=== PATIENT | male | born 1975 | race Caucasian/White ===

== ENCOUNTER → 2020-04-24 | Outpatient (CLI) | payer MEDICAID | END | disposition home or self-care (01) | LOC: LABWHC1 12:21 | PROVIDERS: ATTEND Pediatrics Pediatric Infectious Diseases | DX: Z03.818 Encounter for observation for suspected exposure to other biological agents ruled out (principal) | CPT/HCPCS: U0003; C9803 ==

== ENCOUNTER 2024-03-16 18:10 | Emergency (ER) | payer MEDICAID ==
[2024-03-16] MEDS ORDERED: ACETAMINOPHEN TAB 325 MG TAB ONE (19:38)
[2024-03-16] MEDS ORDERED: traMADol 50 MG TAB ONE (19:39)
[2024-03-16] MEDS ORDERED: IBUPROFEN 600 MG STARTER PACK 4 TAB BTL ONE (22:56)
[2024-03-16] MEDS ORDERED: traMADol 50 MG STARTER PACK 3 TAB BTL ONE (22:57)
--- NOTE | 2024-04-19 11:56 | XR ---
Patient Antonino Love ID [id number] Order # EXAMINATION TYPE: XR Hip Complete RT DATE OF EXAM: 03/17/2024 COMPARISON: No comparison on downtime PACS HISTORY: Pain, fall from horse TECHNIQUE: 2 view right hip supplemented with an AP pelvis FINDINGS: Femoral heads articulate with the acetabulum. Joint spaces are preserved. Symphysis pubis a nd sacroiliac joints are normal. No acute fracture or dislocation is evident. Follow up exams can be performed as clinically indicated IMPRESSION: 1. No acute fracture right hip. Follow up can be performed as clinically indicated
--- NOTE | 2024-04-19 11:57 | XR ---
Patient Antonino Love ID [id number] Order # EXAMINATION TYPE: XR lumbosacral spine min 4V DATE OF EXAM: 03/17/2024 COMPARISON: No comparison downtime PACS HISTORY: Pain, fall from horse TECHNIQUE: 5 view lumbar spine FINDINGS: 5 lumbar type vertebral bodies. Pedicles are intact. Facets appear normal. There is mild na rrowing of the L5-S1 disc height. Remaining disc heights are preserved. Vertebral body heights are pr eserved. No spondylolytic defects are evident. IMPRESSION: 1. No acute osseous abnormality lumbar spine 2. Mild degenerative disc changes L5-S1.
--- NOTE | 2024-04-19 11:57 | XR ---
Site ID [facility] Antonino Gerber ID [id number] Order # Procedure CHEST 2V EXAMINATION TYPE: XR chest 2V DATE OF EXAM: 03/17/2024 9:16 AM CLINICAL INDICATION: Pain COMPARISON: THIS EXAM WAS READ DURING PACS DOWNTIME, NO PRIORS AVAILABLE. TECHNIQUE: XR chest 2V Frontal view of the chest. FINDINGS: Lungs/Pleura: There is no evidence of pleural effusion, focal consolidation, or pneumothorax. Pulmonary vascularity: Unremarkable. Heart/mediastinum: Cardiomediastinal silhouette is unremarkable. Musculoskeletal: No acute osseous pathology. IMPRESSION: No acute cardiopulmonary disease/process.
== END 2024-03-16 23:08 | disposition home or self-care (01) ==
LOC: EC 18:10
CPT/HCPCS: 71046; 72110; 73502; 99283

== ENCOUNTER → 2024-05-04 | Outpatient (CLI) | payer MEDICAID ==
[2024-05-04 11:42] LABS: Partial Thromboplastin Time 25.2 sec (22.0-30.0); Prothrombin Time 11.2 sec (10.0-12.5)
[2024-05-04 16:41] LABS: Basophils # (A) 0.05 X 10*3/uL (0.00-0.10); Basophils % (A) 0.6 %; Eosinophils # (A) 0.32 X 10*3/uL (0.04-0.35); Eosinophils % (A) 3.8 %; HCT 47.9 % (39.6-50.0); HGB 16.4 g/dL (13.0-17.0); MCH 30.8 pg (27.0-32.0); MCHC 34.2 g/dL (32.0-37.0); MCV 89.9 FL (80.0-97.0); Mean Platelet Volume 12.7 FL (9.5-12.2); Monocytes # (A) 0.56 X 10*3/uL (0.20-1.00); Monocytes % (A) 6.6 %; NRBC Per 100 WBC 0 X 10*3/uL (0.00-0.01); Neutrophils # (A) 5.25 X 10*3/uL (1.80-7.70); Neutrophils % (A) 61.6 %; Platelet Count 239 X 10*3/uL (140-440); RBC 5.33 X 10*6/uL (4.40-5.60); RDW 12.5 % (11.5-14.5); WBC 8.51 X 10*3/uL (4.50-10.00)
[2024-05-04 16:55] LABS: ALT 32 U/L (10-49); AST 26 U/L (14-35); Albumin/Globulin Ratio 1.72 Ratio (1.60-3.17); Alkaline Phosphatase 98 U/L (41-126); Blood Urea Nitrogen 16.7 mg/dL (9.0-27.0); Calcium 9.9 mg/dL (8.7-10.3); Chloride 104 mmol/L (96-109); Globulin 2.9 g/dL (1.6-3.3); Glucose 115 mg/dL (70-110); Potassium 4.4 mmol/L (3.5-5.5); Sodium 143 mmol/L (135-145); Total Bilirubin 0.8 mg/dL (0.3-1.2); Total Protein 7.9 g/dL (6.2-8.2)
== END | disposition home or self-care (01) ==
LOC: LABWHC1 10:41
PROVIDERS: ATTEND Neurological Surgery
DX: Z01.812 Encounter for preprocedural laboratory examination (principal)
CPT/HCPCS: 36415; 80053; 83036; 85025; 85610; 85730; 87070

== ENCOUNTER → 2024-07-08 | Outpatient (CLI) | payer MEDICAID ==
--- NOTE | 2024-07-08 14:46 | XR ---
EXAMINATION TYPE: XR cervical spine w flex/ext DATE OF EXAM: 07/08/2024 COMPARISON: NONE CLINICAL INDICATION: Male, 49 years old with history of M50.021 CERVICAL DISC DISORDER AT C4-C5 LEVEL WITH; pain. Surgery 5 months ago. TECHNIQUE: 9 views FINDINGS: Patient status post C4-C5 ACDF. Some degenerative change at the C1 dens articulation. No pr evertebral soft tissue swelling. The patient's shoulders obscure the lower cervical spine. We are onl y able to visualize down to the C6 level. Along the visualized portion, alignment is maintained. No d ynamic subluxation with flexion-extension. No malalignment on the swimmer's view. Mild degenerative d isc disease below the fusion at C5-C6. Mild scattered facet and uncovertebral joint arthropathy. Muro ges result in mild to moderate bony neural foraminal narrowing on the left at C5-C6. IMPRESSION: 1. Flexion-extension views only able to visualize down to the C6 level. No malalignment or dynamic martin bluxation along the visualized portions. 2. Status post C4-C5 ACDF. Scattered mild facet and uncovertebral joint or uropathy. There appears to be a mild to moderate bony neuroforaminal narrowing on the left at C5-C6. [facility], , 07/08/2024 2:43 PM
== END | disposition home or self-care (01) ==
LOC: RADXRMAIN 13:32
PROVIDERS: ATTEND Family Medicine
DX: M50.021 Cervical disc disorder at C4-C5 level with myelopathy (principal)
CPT/HCPCS: 72052

== ENCOUNTER → 2024-07-18 | Outpatient (CLI) | payer MEDICAID ==
--- NOTE | 2024-07-18 17:53 | US ---
EXAMINATION TYPE: US thyroid st tissue head/neck DATE OF EXAM: 07/18/2024 COMPARISON: NONE CLINICAL INDICATION: Male, 49 years old with history of R22.1 LOCALIZED SWELLING, MASS AND LUMP, NECK ; Pt recently has Neck Sx, started to feel swollen in neck TECHNIQUE: Grayscale and color Doppler imaging of the thyroid gland. FINDINGS: GLAND SIZE: Right Lobe: 4.3x1.2x1.7 cm Overall Parenchyma: heterogeneous Left Lobe: 3.6x1.0x2.0 cm Overall Parenchyma: heterogeneous Isthmus Thickness: 0.5 cm Slightly limited exam due to pt recently having neck surgery & unable to rotate neck fully NODULES Right thyroid 0.6 x 0.4 x 0.6 cm TIRADS Score: 4 TIRADS Category 4: Composition: Solid or almost completely solid (2 points). Echogenicity: Hypoechoic (2 points). Shape: Wider than tall (0 points). Margin: Smooth (0 points). Echogenic foci: None or large comet-tail artifacts (0 points) Recommendation: If >1.5cm: FNA; If >1cm: Follow up at 1,2, 3,5 years Left thyroid gland no nodules. ISTHMUS : # of nodules measured in the isthmus: 0 No enlarged lymph nodes are noted in the neck. IMPRESSION: 1. Right thyroid nodule that meet criteria for follow-up. No suspicious nodules definitively visuali zed. 2. Nonenlarged lymph nodes. [facility], , 07/18/2024 5:50 PM
== END | disposition home or self-care (01) ==
LOC: RADUSWWP 15:05
PROVIDERS: ATTEND Family Medicine
DX: E04.1 Nontoxic single thyroid nodule (principal); R22.1 Localized swelling, mass and lump, neck
CPT/HCPCS: 76536

== ENCOUNTER 2024-08-05 15:54 | Inpatient (IN) | payer MEDICAID ==
[2024-08-05 17:05] LABS: Glucose,Whole Blood 93 mg/dL (70-110)
--- NOTE | 2024-08-05 17:10 | ED ---
General Adult HPI - General Chief complaint: Neuro Symptoms/Deficit Stated complaint: neuro symptoms Time Seen by Provider: 08/05/24 16:50 Source: patient, family, RN notes reviewed, old records reviewed Mode of arrival: wheelchair Limitations: no limitations - History of Present Illness Initial comments: This is a 49-year-old male who presents to the emergency department with some stuttering speech and a little discoordination of the left arm. Patient states that he had neck surgery in May and the day after he had some of the stuttering speech but end went away and he has not had since. Patient states that noon today it started to come back and his mother verifies this is not the way he normally speaks. Patient also states yesterday physical therapy they noticed that his left arm was weaker than his right arm. Patient states that he is normally little stronger in the left arm prior to surgery but since surgery he thinks he has a little weakness in the left arm. Patient denies chest pain or difficulty breathing. Patient denies any neck pain. Patient has a headache. Patient denies any chest pain difficulty breathing shortness of breath. - Related Data Home Medications Medication Instructions Recorded Confirmed Atorvastatin [Lipitor] 20 mg PO HS 08/05/24 08/05/24 HYDROcodone/APAP 5-325MG [[place] 1 tab PO Q4HR PRN 08/05/24 08/05/24 5-325] Losartan Potassium 100 mg PO DIRECTED 08/05/24 08/05/24 Losartan/Hydrochlorothiazide 1 tab PO DIRECTED 08/05/24 08/05/24 [Hyzaar 100-12.5 Tablet] Multivit-Mins/Iron/Folic/Lycop 1 tab PO DAILY 08/05/24 08/05/24 [Centrum Men's Tablet] methocarbamoL [Robaxin-750] 750 mg PO Q6H PRN 08/05/24 08/05/24 traMADol HCl [Ultram] 50 mg PO Q6H PRN 08/05/24 08/05/24 Allergies Allergy/AdvReac Type Severity Reaction Status Date / Time No Known Allergies Allergy Verified 08/05/24 18:03 Review of Systems ROS Statement: Those systems with pertinent positive or pertinent negative responses have been documented in the HPI. ROS Other: All systems not noted in ROS Statement are negative. 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 tremors Additional Past Surgical History / Comment(s): anterior cervical discectomy and fusion Smoking Status: Never smoker Past Alcohol Use History: None Reported Past Drug Use History: None Reported General Exam - General Exam Comments Initial Comments: GENERAL: Patient is well-developed and well-nourished. Patient is nontoxic and well- hydrated and is in no acute distress. ENT: Neck is soft and supple. No significant lymphadenopathy is noted. Oropharynx is clear. Moist mucous membranes. Neck has full range of motion without eliciting any pain. EYES: The sclera were anicteric and conjunctiva were pink and moist. Extraocular movements were intact and pupils were equal round and reactive to light. Eyelids were unremarkable. PULMONARY: Unlabored respirations. Good breath sounds bilaterally. No audible rales rhonchi or wheezing was noted. CARDIOVASCULAR: There is a regular rate and rhythm without any murmurs gallops or rubs. ABDOMEN: Soft and nontender with normal bowel sounds. SKIN: Skin is clear with no lesions or rashes and otherwise unremarkable. NEUROLOGIC: Patient is alert and oriented x3. Cranial nerves II through XII are grossly intact. Motor and sensory are also intact. Patient's speech is clear however slow and somewhat stuttering. Symmetrical smile. Finger-nose with the left hand is slightly off. MUSCULOSKELETAL: Normal extremities with adequate strength and full range of motion. No lower extremity swelling or edema. No calf tenderness. LYMPHATICS: No significant lymphadenopathy is noted PSYCHIATRIC: Normal psychiatric evaluation. Limitations: no limitations Course Vital Signs 08/05/24 08/05/24 08/05/24 16:06 17:41 19:00 Temperature 98 F Pulse Rate 74 70 80 Respiratory 18 20 18 Rate Blood Pressure 157/101 163/90 140/90 O2 Sat by Pulse 98 98 97 Oximetry Medical Decision Making - Medical Decision Making EKG is interpreted by myself. EKG shows sinus rhythm at 70 bpm OR 165 QRS is 99 QT interval 366 QTc is 387. Patient's EKG shows no ST segment elevation or depression. Was pt. sent in by a medical professional or institution (, PA, CLINICAL INSTRUCTOR, urgent care, hospital, or care home...) When possible be specific @ -Yes Did you speak to anyone other than the patient for history (EMS, parent, family, police, friend...)? What history was obtained from this source @ -No Did you review nursing and triage notes (agree or disagree)? Why? @ -I reviewed and agree with nursing and triage notes Were old charts reviewed (outside hosp., previous admission, EMS record, old EKG, old radiological studies, urgent care reports/EKG's, care home records)? Report findings @ -No old charts were reviewed Differential Diagnosis? @ -Differential CVA Ischemic stroke, hemorrhagic stroke, brain tumor, atypical migraine, Wernicke's encephalopathy, seizure, multiple sclerosis, meningitis, encephalitis, hypoglycemia, Guillain-Pineda, electrolytes disturbance, myasthenia gravis.... This is not meant to be an all-inclusive list EKG interpreted by me (3pts min.). @ -As above X-rays interpreted by me (1pt min.). @ -None done CT interpreted by me (1pt min.). @ -CT of the brain shows no acute abnormality CT angiogram shows no acute abnormality U/S interpreted by me (1pt. min.). @ -None done What testing was considered but not performed or refused? (CT, X-rays, U/S, labs)? Why? @ -None What meds were considered but not given or refused? Why? @ -None Did you discuss the management of the patient with other professionals (professionals i.e. , PA, CLINICAL INSTRUCTOR, lab, RT, psych nurse, social media senior associate, pipe bending machine operator, teacher, district fire management officer, rn case mgr)? Give summary @ -I spoke with sound physicians agreed to admit the patient admit the patient wrote admitting orders. I spoke with Dr. Craft he agreed that the patient did not need any intervention just medical management at this time. Was smoking cessation discussed for >3mins.? @ -No Was critical care preformed (if so, how long)? @ -35 minutes Were there social determinants of health that impacted care today? How? (Homelessness, low income, unemployed, alcoholism, drug addiction, transportation, low edu. Level, literacy, decrease access to med. care, retirement, rehab)? @ -No Was there de-escalation of care discussed even if they declined (Discuss DNR or withdrawal of care, Hospice)? DNR status @ -No What co-morbidities impacted this encounter? (DM, HTN, Smoking, COPD, CAD, Cancer, CVA, ARF, Chemo, Hep., AIDS, mental health diagnosis, sleep apnea, morbid obesity)? @ -None Was patient admitted / discharged? Hospital course, mention meds given and route, prescriptions, significant lab abnormalities, going to OR and other pertinent info. @ -Patient CT and CTA were negative. Patient did have a slightly elevated troponin so that will be repeated. Neurology will be consulted sound physicians will admit the patient. And the patient will be started on aspirin and Brilinta Undiagnosed new problem with uncertain prognosis? @ -No Drug Therapy requiring intensive monitoring for toxicity (Heparin, Nitro, Ins ulin, Cardizem)? @ -No Were any procedures done? @ -No Diagnosis/symptom? @ -CVA Acute, or Chronic, or Acute on Chronic? @ -Acute Uncomplicated (without systemic symptoms) or Complicated (systemic symptoms)? @ -Complicated Side effects of treatment? @ -No Exacerbation, Progression, or Severe Exacerbation? @ -No Poses a threat to life or bodily function? How? (Chest pain, [place], [place], pneumonia, PE, COPD, DKA, ARF, appy, cholecystitis, CVA, Diverticulitis, Homicidal, Suicidal, threat to staff... and all critical care pts) @ -Yes this could lead to a massive stroke and Diagnosis/symptom? @ -Elevated troponin Acute, or Chronic, or Acute on Chronic? @ -Acute Uncomplicated (without systemic symptoms) or Complicated (systemic symptoms)? @ -Complicated Side effects of treatment? @ -None Exacerbation, Progression, or Severe Exacerbation] @ -No Poses a threat to life or bodily function? @ -Yes this could be a precursor to an TN and cause significant morbidity or mortality - Lab Data Result diagrams: 08/05/24 16:40 08/05/24 16:40 Lab Results 08/05/24 08/05/24 08/05/24 Range/Units 16:40 16:40 16:40 WBC 10.2 (3.8-10.6) k/uL RBC 5.31 (4.30-5.90) m/uL Hgb 16.4 (13.0-17.5) gm/dL Hct 48.4 (39.0-53.0) % MCV 91.0 (80.0-100.0) fL MCH 30.9 (25.0-35.0) pg MCHC 33.9 (31.0-37.0) g/dL RDW 12.7 (11.5-15.5) % Plt Count 240 (150-450) k/uL MPV 9.7 Neutrophils % 62 % Lymphocytes % 28 % Monocytes % 5 % Eosinophils % 3 % Basophils % 1 % Neutrophils # 6.3 (1.3-7.7) k/uL Lymphocytes # 2.9 (1.0-4.8) k/uL Monocytes # 0.5 (0-1.0) k/uL Eosinophils # 0.3 (0-0.7) k/uL Basophils # 0.1 (0-0.2) k/uL PT 10.5 (10.0-12.5) sec INR 0.9 (<1.2) APTT 24.3 (22.0-30.0) sec Sodium 139 (137-145) mmol/L Potassium 4.6 (3.5-5.1) mmol/L Chloride 102 (98-107) mmol/L Carbon Dioxide 25 (22-30) mmol/L Anion Gap 12 mmol/L BUN 18 (9-20) mg/dL Creatinine 0.92 (0.66-1.25) mg/dL Est GFR (CKD-EPI)AfAm >90 (>60 ml/min/1.73 sqM) Est GFR (CKD-EPI)NonAf >90 (>60 ml/min/1.73 sqM) Glucose 92 (74-99) mg/dL POC Glucose (mg/dL) (70-110) mg/dL POC Glu College And Career Counselor ID Calcium 10.0 (8.4-10.2) mg/dL Total Bilirubin 0.7 (0.2-1.3) mg/dL AST 39 (17-59) U/L ALT 56 H (4-49) U/L Alkaline Phosphatase 91 (38-126) U/L Creatine Kinase 232 H (55-170) U/L Troponin I (0.000-0.034) ng/mL Total Protein 8.6 H (6.3-8.2) g/dL Albumin 5.4 H (3.5-5.0) g/dL 08/05/24 08/05/24 Range/Units 16:40 17:05 WBC (3.8-10.6) k/uL RBC (4.30-5.90) m/uL Hgb (13.0-17.5) gm/dL Hct (39.0-53.0) % MCV (80.0-100.0) fL MCH (25.0-35.0) pg MCHC (31.0-37.0) g/dL RDW (11.5-15.5) % Plt Count (150-450) k/uL MPV Neutrophils % % Lymphocytes % % Monocytes % % Eosinophils % % Basophils % % Neutrophils # (1.3-7.7) k/uL Lymphocytes # (1.0-4.8) k/uL Monocytes # (0-1.0) k/uL Eosinophils # (0-0.7) k/uL Basophils # (0-0.2) k/uL PT (10.0-12.5) sec INR (<1.2) APTT (22.0-30.0) sec Sodium (137-145) mmol/L Potassium (3.5-5.1) mmol/L Chloride (98-107) mmol/L Carbon Dioxide (22-30) mmol/L Anion Gap mmol/L BUN (9-20) mg/dL Creatinine (0.66-1.25) mg/dL Est GFR (CKD-EPI)AfAm (>60 ml/min/1.73 sqM) Est GFR (CKD-EPI)NonAf (>60 ml/min/1.73 sqM) Glucose (74-99) mg/dL POC Glucose (mg/dL) 93 (70-110) mg/dL POC Glu [employer] And Career Counselor ID Contreras Andry Calcium (8.4-10.2) mg/dL Total Bilirubin (0.2-1.3) mg/dL AST (17-59) U/L ALT (4-49) U/L Alkaline Phosphatase (38-126) U/L Creatine Kinase (55-170) U/L Troponin I 0.057 H* (0.000-0.034) ng/mL Total Protein (6.3-8.2) g/dL Albumin (3.5-5.0) g/dL Disposition Clinical Impression: Cerebrovascular accident (CVA), Elevated troponin Disposition: ADMITTED IP TO THIS HOSP Referrals: Stewart Shankar MD [Primary Care Provider] - 1-2 days Time of Disposition: 19:57
[2024-08-05 17:14] LABS: Basophils # (A) 0.1 k/uL (0-0.2); Basophils % (A) 1 %; Eosinophils # (A) 0.3 k/uL (0-0.7); Eosinophils % (A) 3 %; HCT 48.4 % (39.0-53.0); HGB 16.4 gm/dL (13.0-17.5); Lymphocytes # (A) 2.9 k/uL (1.0-4.8); Lymphocytes % (A) 28 %; MCH 30.9 pg (25.0-35.0); MCHC 33.9 g/dL (31.0-37.0); Mean Platelet Volume 9.7; Monocytes # (A) 0.5 k/uL (0-1.0); Monocytes % (A) 5 %; Neutrophils # (A) 6.3 k/uL (1.3-7.7); Neutrophils % (A) 62 %; Platelet Count 240 k/uL (150-450); RBC 5.31 m/uL (4.30-5.90); RDW 12.7 % (11.5-15.5); WBC 10.2 k/uL (3.8-10.6)
[2024-08-05 17:18] LABS: ALT 56 U/L (4-49); AST 39 U/L (17-59); African American GFR (CKD) >90 (>60 ml/min/1.73 sqM); Albumin 5.4 g/dL (3.5-5.0); Alkaline Phosphatase 91 U/L (38-126); Anion Gap 12 mmol/L; Blood Urea Nitrogen 18 mg/dL (9-20); Carbon Dioxide 25 mmol/L (22-30); Chloride 102 mmol/L (98-107); Creatine Kinase 232 U/L (55-170); Glucose 92 mg/dL (74-99); Non-African American GFR(CKD) >90 (>60 ml/min/1.73 sqM); Potassium 4.6 mmol/L (3.5-5.1); Sodium 139 mmol/L (137-145); Total Bilirubin 0.7 mg/dL (0.2-1.3); Total Protein 8.6 g/dL (6.3-8.2)
--- NOTE | 2024-08-05 17:20 | CT ---
EXAMINATION TYPE: CODE STROKE: CT brain wo contr DATE OF EXAM: 08/05/2024 COMPARISON: None. CLINICAL INDICATION: Male, 49 years old with history of Neuro deficit, acute, stroke suspected; PHH, Code stroke. Difficulty speaking. TECHNIQUE: CT of the brain performed without contrast with sagittal and coronal reformats. CT DLP: 1172.[address] CTDI: 49.1 mGy Automated exposure control for dose reduction was used. FINDINGS: There is no acute intracranial hemorrhage, mass effect, or midline shift identified. The ventricles and sulci are within normal limits in size. Michaels-white matter differentiation is maintained. The mavis bes are intact and the visualized sinuses are clear. Soft tissue density consistent with cerumen is s een in the right external auditory canal. IMPRESSION: No acute intracranial hemorrhage or midline shift is seen. [facility], , 08/05/2024 5:18 PM
[2024-08-05 17:23] LABS: INR 0.9 (<1.2); Partial Thromboplastin Time 24.3 sec (22.0-30.0); Prothrombin Time 10.5 sec (10.0-12.5)
--- NOTE | 2024-08-05 17:45 | CT ---
EXAMINATION TYPE: CODE STROKE: CTA head neck DATE OF EXAM: 08/05/2024 COMPARISON: None. CLINICAL INDICATION: Male, 49 years old with history of Neuro deficit, acute, stroke suspected; PHH, Code stroke. Difficulty speaking. TECHNIQUE: CTA scan of the head and neck is performed with IV Contrast, patient injected with 65 ml mL of Isovue 370, axial images are obtained, coronal and sagittal reformatted images are reviewed. 3D reconstructed images are created on an independent workstation and reviewed. CT DLP: 768.[address] CTDI: 44 mGy Automated exposure control for dose reduction was used. NASCET criteria was used in interpretation of this exam? FINDINGS: Right Carotid System: The common carotid artery and external carotid artery are patent. The carotid bifurcation demonstrate s no evidence of hemodynamically significant stenosis. Mild peripheral mixed plaque. The remaining po rtions of the internal carotid artery demonstrate normal size without significant narrowing. Mild dis dexter peripheral calcified plaque. Left Carotid System: The common carotid artery and external carotid artery are patent. The carotid bifurcation demonstrate s no evidence of hemodynamically significant stenosis. Mild peripheral mixed plaque The remaining por tions of the internal carotid artery demonstrate normal size without significant narrowing. Mild dist al peripheral calcified plaque. Vertebral arteries are patent without evidence hemodynamically significant stenosis. There is a three-vessel aortic arch. The origins of the great vessels are patent. No evidence of hemo dynamically significant stenosis. Hypoplastic right P1 segment with filling of the P2 segment due to patent right posterior communicati ng artery. Normal variant. Patent anterior to indicating artery is seen. No large vessel occlusion or aneurysm at the level of the [place] of [place]. Patent left posterior commuting artery is seen. Other: Surgical changes C4-C5 level is seen. Moderate compression type fracture at T4 level presumed chronic without linear lucency identified. IMPRESSION: 1. No evidence of significant stenosis at the carotid bifurcations. No large vessel occlusion at le ralph of k[place] of [place]. [facility], , 08/05/2024 5:43 PM
--- NOTE | 2024-08-05 17:47 | XR ---
EXAMINATION TYPE: XR chest 2V DATE OF EXAM: 08/05/2024 CLINICAL HISTORY: Altered mental status TECHNIQUE: Frontal and lateral views of the chest are obtained. COMPARISON: None FINDINGS: There is no focal air space opacity, pleural effusion, or pneumothorax seen. The cardiac silhouette size is stable and within normal limits. There is now anterior fusion plate in the cervica l spine noted. IMPRESSION: No acute cardiopulmonary process. [facility], , 08/05/2024 5:44 PM
[2024-08-05] MEDS: ASPIRIN 325 MG TAB PO STA (20:37)
[2024-08-05] MEDS: TICAGRELOR 90 MG TAB PO STA (20:37)
[2024-08-05] MEDS: TICAGRELOR 90 MG TAB PO SCH (20:37)
--- NOTE | 2024-08-06 00:47 | P.HPIM ---
History of Present Illness H&P Date: 08/05/24 Patient is a 49-year-old male with PMHx of Hypertension & Hyperlipidemia who presents to the ER with his mother with chief complaint of feeling fuzzy and unable to finish his thoughts, slurred speech, slow reactivity. Last known well was around noon today. Patient states that he has been having tremors and twitching which started shortly after spinal cord surgery in May. He states as of right now, he feels that he is back to his baseline but does endorse a mild headache but he states it is from his surgery. His mother states he has had some episodes of unsteadiness when changing positions from seated to standing and that he take a little time to equilibrate. Patient states he has chronic neck pain which cold weather exacerbates his baseline of 2-3 to 5 or 6 and patient take Robaxin & Norcos but hasn't since 1 time last week. He denies any LOC, head trauma, falls, numbness/tingling, facial asymmetry, fevers, chills, nausea, vomiting, or headaches. ED documentation reviewed. Vitals on admission temperature 98, heart rate 74 bpm, respiratory rate 18, blood pressure 157/101, O2 saturation 98% on room air EKG independently interpreted as sinus rhythm heart rate 70 bpm, QTc 327 ms CXR shows no acute cardio pulmonary process CT of brain without contrast shows no acute intracranial hemorrhage or midline shift CTA showed no evidence of significant stenosis at carotid bifurcations. No large vessel occlusions at level of [place] of [place]. Labs on admission show WBCs 10.2. Hemoglobin 16.4. Platelets 240. PT 10.5. INR 0.9. APTT 24.3. Sodium 139. Potassium 4.6. Chloride 102. Bicarb 25. BUN 18. Creatinine 0.92. Glucose 92. AST 39, ALT 56, ALP 91. Creatine kinase 232. Troponin 0.057. Review of systems: Pertinent positives and negatives as discussed in HPI, a complete review of systems was performed and all other systems are negative. Social history: Tobacco: none Alcohol: none Recreational drugs: none Travel: none Sick contacts: none Physical examination: Vital signs reviewed General: nontoxic, no distress, appears at stated age, obese Derm: warm, dry, intact Head: atraumatic, normocephalic, symmetric Eyes: anicteric sclera Mouth: no lip lesion, mucus membranes moist Cardiovascular: S1 S2 reg, no murmur Lungs: CTA bilateral, no rhonchi, no rales, no accessory muscle use Abdominal: soft, non-tender to palpation, nondistended Extremities: No cyanosis, clubbing, or pedal edema. Neuro: Alert, Oriented to person, time and place, Gross neurological examination did not reveal any focal deficits. Cranial nerves II to XII grossly intact. Bilateral upper and lower extremity muscle strength intact and sensation intact. Psych: well appearing, appropriate affect Assessment/Plan: Patient is a 49-year-old male with past medical history of hypertension hyperlipidemia who presented to the ER with chief complaint of brief episode of slurred speech and slow reactivity. Patient will be admitted to medicine service for further management of TIA. Active: Transient ischemic attack Continue aspirin 81 mg daily Continue Brilinta 90 mg twice daily Initiate Lipitor 80 mg daily Neurochecks per protocol Consult neurology Consult PT/OT Consult speech therapy Echocardiogram Cardiac monitoring Elevated CK Continue to monitor Marginally elevated troponin Patient denying current or prior chest discomfort or shortness of breath Continue to monitor Continue cardiac monitoring Trend for now Cardiology consult Chronic: Hypertension Will restart home Hyzaar Hyperlipidemia Follow-up lipid panel C/w Lipitor 80 mg po qhs Chronic neck pain Continue Robaxin 750 mg every 6 hours as needed Hold [place] 5325 mg every 4 hours as needed Hold tramadol 50 mg every 6 hours as needed F: None E: Replete as needed N: Heart healthy diet A: As tolerated DVT prophylaxis: Lovenox 40 mg subq The patient is admitted with an anticipated more than 2 midnight stay for evaluation of TIA CODE STATUS: Full code Discussed with: Patient Anticipated discharge place: Home Past Medical History Past Medical History: Hyperlipidemia, Hypertension Additional Past Medical History / Comment(s): 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 tremors Additional Past Surgical History / Comment(s): anterior cervical discectomy and fusion Smoking Status: Never smoker Past Alcohol Use History: None Reported Past Drug Use History: None Reported Medications and Allergies Home Medications Medication Instructions Recorded Confirmed Type Atorvastatin [Lipitor] 20 mg PO HS 08/05/24 08/05/24 History HYDROcodone/APAP 5-325MG [[place] 1 tab PO Q4HR PRN 08/05/24 08/05/24 History 5-325] Losartan Potassium 100 mg PO DIRECTED 08/05/24 08/05/24 History Losartan/Hydrochlorothiazide 1 tab PO DIRECTED 08/05/24 08/05/24 History [Hyzaar 100-12.5 Tablet] Multivit-Mins/Iron/Folic/Lycop 1 tab PO DAILY 08/05/24 08/05/24 History [Centrum Men's Tablet] methocarbamoL [Robaxin-750] 750 mg PO Q6H PRN 08/05/24 08/05/24 History traMADol HCl [Ultram] 50 mg PO Q6H PRN 08/05/24 08/05/24 History Allergies Allergy/AdvReac Type Severity Reaction Status Date / Time No Known Allergies Allergy Verified 08/05/24 18:03 Physical Exam Vitals: Vital Signs Temp Pulse Resp BP Pulse Ox 08/05/24 19:00 80 18 140/90 97 08/05/24 17:41 70 20 163/90 98 08/05/24 16:06 98 F 74 18 157/101 98 Intake and Output 08/05/24 08/05/24 08/05/24 06:59 14:59 22:59 Other: Weight 115.212 kg Results CBC & Chem 7: 08/05/24 16:40 08/05/24 16:40 Labs: Abnormal Lab Results - Last 24 Hours (Table) 08/05/24 08/05/24 Range/Units 16:40 16:40 ALT 56 H (4-49) U/L Creatine Kinase 232 H (55-170) U/L Troponin I 0.057 H* (0.000-0.034) ng/mL Total Protein 8.6 H (6.3-8.2) g/dL Albumin 5.4 H (3.5-5.0) g/dL
[2024-08-06] MEDS ORDERED: traMADol 50 MG TAB PO PRN (02:06)
[2024-08-06] MEDS: ATORVASTATIN 80 MG TAB PO STA (02:56)
[2024-08-06] MEDS: LOSARTAN 50 MG TAB PO SCH ×2 (02:56→09:23)
[2024-08-06] MEDS: LOSARTAN-HCTZ 50-12.5 MG 1 EACH TAB PO SCH ×2 (02:57→09:23)
[2024-08-06] MEDS ORDERED: ASPIRIN 325 MG TAB PO SCH (09:00)
[2024-08-06] MEDS: ENOXAPARIN 40 MG/0.4 ML SYRINGE SQ SCH (09:22)
[2024-08-06] MEDS: ASPIRIN 81 MG PO SCH (09:22)
[2024-08-06] MEDS: ATORVASTATIN 80 MG TAB PO ONE (09:24)
[2024-08-06 09:57] LABS: Chol/HDL Ratio 5.53 Ratio; HDL Cholesterol 34.2 mg/dL (40.00-60.00); VLDL Calculation 91.2 mg/dL (5.00-40.00)
--- NOTE | 2024-08-06 12:41 | P.PN ---
Subjective Progress Note Date: 08/06/24 49 year old M with PMH of HTN, HLD, chronic neck pain with h/o spinal cord surgery presents to the ED for feeling fuzzy, unable to finish his thoughts, unsteadiness and slurred speech. In the ED he underwent extensive evaluation. BP 157/101, HR 74, T 98F, RR 18, 98% on RA. CBC, Coag panel, CMP significant for ALT 56, total protein 8.6, alb 5.4. CPK 232. Troponin 0.057, 0.047, 0.026. EKG sinus rhythm. CT brain and CTA head and neck negative. CXR no acute process. Patient is admitted for further workup and management. 08/06 Patient was seen and examined. Patient reports improvement his speech issues. Continues tremors of the R 4th digit since C4-5 surgery. CPK 154. Troponins trending down as above. Discussed with Dr. Mccann, plans for MRI C- spine + EEG. General: not toxic, no distress, appears at stated age Derm: warm, dry Head: atraumatic, normocephalic, symmetric Eyes: EOMI, no lid lag, anicteric sclera Mouth: no lip lesion, mucus membranes moist Cardiovascular: S1S2 reg, no murmur Lungs: Clear to auscultation BL Ext: no gross muscle atrophy, no edema, no contractures, Tremor R 4th digit. Neuro: no focal neuro deficits Psych: Alert, oriented, appropriate affect Based on my assessment of this patient, this patient meets a high complexity level of care. TIA: CT brain and CTA head and neck as above. Echo, MRI brain/C-spine, EEG ordered. ASA 81 mg PO QD. Lipitor 80 mg PO QHS. Brilinta 90 mg PO BID. Possibly switch Brilinta to Plavix. A1c and Lipid panel. Neurochecks. Telemetry monit oring. PT/OT/ST consult. Neurology consulted. Troponin elevation: Trending down. ACS ruled out. Related to above? Cardiology consulted. Hypertension: Losartan 100 mg PO QD. HCTZ 12.5 mg PO QD. Dyslipidemia: Lipitor 80 mg PO QHS. Chronic neck pain: Tramadol 50 mg PO Q6Hm Robaxin 750 mg PO Q6H PRN. Resolved: Elevated CPK CODE STATUS: FULL CODE DVT Prophylaxis: Lovenox SQ GI Prophylaxis: Designated medical POA if patient is not able to make medical decisions for themselves: I have reviewed the following system sales consultant notes: I have reviewed the results of the following tests: Trop x 2. CPK. I have ordered the following tests: Echo, MRI brain/C-spine, EEG I have discussed the care of this patient with the following independent historian: Family. I have independently interpreted the following test below: I have discussed the management of this patient with the following physician: Dr. Mccann Objective - Vital Signs Vital signs: Vital Signs Temp 98 F 08/05/24 16:06 Pulse 68 08/06/24 05:00 Resp 18 08/06/24 05:00 BP 120/80 08/06/24 05:00 Pulse Ox 97 08/06/24 05:00 FiO2 Intake & Output 08/05/24 08/06/24 08/06/24 18:59 06:59 18:59 Weight 115.212 kg - Labs CBC & Chem 7: 08/05/24 16:40 08/05/24 16:40 Labs: Abnormal Lab Results - Last 24 Hours (Table) 08/05/24 08/05/24 08/06/24 Range/Units 16:40 16:40 00:16 ALT 56 H (4-49) U/L Creatine Kinase 232 H (55-170) U/L Troponin I 0.057 H* 0.047 H* (0.000-0.034) ng/mL Total Protein 8.6 H (6.3-8.2) g/dL Albumin 5.4 H (3.5-5.0) g/dL
--- NOTE | 2024-08-06 12:43 | P.CRDCN ---
History of Present Illness History of present illness: HISTORY OF PRESENT ILLNESS: This is a 49-year-old male with a past medical history significant for hypertension and hyperlipidemia. Patient does not follow with a costume technician. We have been asked to see the patient in consultation for elevated troponins. Patient examined at the bedside in the emergency room. Patient states yesterday he was walking around [facility] when he began to feel "fuzzy" and was having a hard time of finishing his thoughts. He states later on in the day he was at home when his mother came to visit and she noticed that his speech was more delayed. He also reports he was still having problems collecting his thoughts. He states the symptoms lasted for about 5 hours total. He states this morning all his symptoms have resolved. He denies having any chest pain or pressure. Denies having any shortness of breath. He does report a history of hypertension and states that his PCP recently increased his blood pressure medications yesterday (HCTZ was added to losartan). Patient does report a history of spinal cord surgery in May. He reports he has been having tremors and twitching since his surgery and his surgeon has referred him to see a neurologist but he has not yet established an appointment. DIAGNOSTICS: - EKG reveals sinus mechanism with no signs of acute ischemia - Chest xray negative for acute process - Laboratory data: WBC 10.2. Hemoglobin 16.4. Platelet count 240. Sodium 139. Potassium 4.6. BUN 18. Creatinine 0.90. Troponin 0.057. 0.047. 0.026. - Current home cardiac medications include Lipitor 20 mg at night and losart anhydrochlorothiazide 100-12.5 mg daily. - No previous echocardiogram, stress test, or cardiac catheterization available in EMR for review REVIEW OF SYSTEMS: At the time of my exam: CONSTITUTIONAL: Denies fever or chills. HEENT: Denies blurred vision, vision changes, or eye pain. Denies hemoptysis CARDIOVASCULAR: Denies chest pain. Denies orthopnea. Denies PND. Denies palpitations RESPIRATORY: Denies shortness of breath. GASTROINTESTINAL: Denies abdominal pain. Denies nausea or vomiting. HEMATOLOGIC: Denies bleeding disorders. GENITOURINARY: Denies any blood in urine. SKIN: Denies pruitis. Denies rash. PHYSICAL EXAM: VITAL SIGNS: Reviewed. GENERAL: Well-developed in no acute distress. HEENT: Head is normocephalic. Pupils are equal, round. Sclerae anicteric. Mucous membranes of the mouth are moist. Neck supple. No JVD or thyromegaly LUNGS: Respirations even and unlabored. Lungs essentially clear to auscultation bilaterally. HEART: Regular rate and rhythm. S1 and S2 heard. ABDOMEN: Soft. Nondistended. Nontender. EXTREMITIES: Normal range of motion. No clubbing or cyanosis. Peripheral pulses intact. No lower extremity edema NEUROLOGIC: Awake and alert. Oriented x 3. ASSESSMENT: Slurred speech, inability to collect his thoughts, and feeling "fuzzy"; rule out neurologic etiology Minimally elevated troponin, likely type II [place], no evidence of acute coronary syndrome Hypertension Hyperlipidemia Recent spinal cord surgery, May 2024 Obesity: BMI 34.4 PLAN: An acute coronary but has been ruled out Resume home cardiac medications Continue to monitor blood pressure. Patient was just started on HCTZ yesterday per his PCP for optimal blood pressure control. Continue telemetry monitoring Await neurology evaluation Further recommendations pending patient course Nurse practitioner note has been reviewed by physician. Signing provider agrees with the documented findings, assessment, and plan of care documented by ANALYTICAL LABORATORY TECHNICIAN as a scribe. 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 tremors Additional Past Surgical History / Comment(s): anterior cervical discectomy and fusion Smoking Status: Never smoker Past Alcohol Use History: None Reported Past Drug Use History: None Reported Medications and Allergies Home Medications Medication Instructions Recorded Confirmed Type Atorvastatin [Lipitor] 20 mg PO HS 08/05/24 08/05/24 History HYDROcodone/APAP 5-325MG [[place] 1 tab PO Q4HR PRN 08/05/24 08/05/24 History 5-325] Losartan Potassium 100 mg PO DIRECTED 08/05/24 08/05/24 History Losartan/Hydrochlorothiazide 1 tab PO DIRECTED 08/05/24 08/05/24 History [Hyzaar 100-12.5 Tablet] Multivit-Mins/Iron/Folic/Lycop 1 tab PO DAILY 08/05/24 08/05/24 History [Centrum Men's Tablet] methocarbamoL [Robaxin-750] 750 mg PO Q6H PRN 08/05/24 08/05/24 History traMADol HCl [Ultram] 50 mg PO Q6H PRN 08/05/24 08/05/24 History Allergies Allergy/AdvReac Type Severity Reaction Status Date / Time No Known Allergies Allergy Verified 08/05/24 18:03 Physical Exam Vitals: Vital Signs Temp Pulse Resp BP Pulse Ox 08/06/24 05:00 68 18 120/80 97 08/06/24 01:04 71 19 117/61 97 08/05/24 22:19 67 18 173/115 98 08/05/24 19:00 80 18 140/90 97 08/05/24 17:41 70 20 163/90 98 08/05/24 16:06 98 F 74 18 157/101 98 Intake and Output 08/05/24 08/06/24 08/06/24 22:59 06:59 14:59 Other: Weight 115.212 kg Results 08/05/24 16:40 08/05/24 16:40 Cardiac Enzymes 08/05/24 08/05/24 08/06/24 Range/Units 16:40 16:40 00:16 AST 39 (17-59) U/L Troponin I 0.057 H* 0.047 H* (0.000-0.034) ng/mL 08/06/24 Range/Units 06:40 AST (17-59) U/L Troponin I 0.026 (0.000-0.034) ng/mL Coagulation 08/05/24 Range/Units 16:40 PT 10.5 (10.0-12.5) sec APTT 24.3 (22.0-30.0) sec CBC 08/05/24 Range/Units 16:40 WBC 10.2 (3.8-10.6) k/uL RBC 5.31 (4.30-5.90) m/uL Hgb 16.4 (13.0-17.5) gm/dL Hct 48.4 (39.0-53.0) % Plt Count 240 (150-450) k/uL Comprehensive Metabolic Panel 08/05/24 Range/Units 16:40 Sodium 139 (137-145) mmol/L Potassium 4.6 (3.5-5.1) mmol/L Chloride 102 (98-107) mmol/L Carbon Dioxide 25 (22-30) mmol/L BUN 18 (9-20) mg/dL Creatinine 0.92 (0.66-1.25) mg/dL Glucose 92 (74-99) mg/dL Calcium 10.0 (8.4-10.2) mg/dL AST 39 (17-59) U/L ALT 56 H (4-49) U/L Alkaline Phosphatase 91 (38-126) U/L Total Protein 8.6 H (6.3-8.2) g/dL Albumin 5.4 H (3.5-5.0) g/dL Current Medications Generic Name Dose Route Start Last Admin Trade Name Freq PRN Reason Stop Dose Admin Aspirin 81 mg 08/06/24 09:00 Aspirin 81 Mg PO DAILY [facility] Atorvastatin Calcium 80 mg 08/06/24 21:00 Atorvastatin 80 Mg Tab PO HS [facility] Enoxaparin Sodium 40 mg 08/06/24 09:00 Enoxaparin 40 Mg/0.4 Ml Syringe SQ DAILY [facility] HCTZ/Losartan Potassium 1 each 08/06/24 07:00 Losartan-Hctz 50-12.5 Mg 1 Each Tab PO DAILY [facility] Losartan Potassium 50 mg 08/06/24 07:00 Losartan 50 Mg Tab PO DAILY [facility] Methocarbamol 750 mg 08/06/24 02:30 Methocarbamol 750 Mg Tab PO Q6H PRN Muscle Spasm Ticagrelor 90 mg 08/05/24 21:00 08/05/24 20:37 Ticagrelor 90 Mg Tab PO 90 mg BID [facility] Administration Tramadol HCl 50 mg 08/06/24 02:06 Tramadol 50 Mg Tab PO Q6H PRN Pain Intake and Output 08/05/24 08/06/24 08/06/24 22:59 06:59 14:59 Other: Weight 115.212 kg 08/05/24 16:40 08/05/24 16:40
--- NOTE | 2024-08-06 14:02 | CA ---
Transthoracic Echo Report Name: Antonino Love Age: 49 Gender: M : 1975 Exam Date: 08/06/2024 08:26 Exam Location: [facility] Ht (in): 72 Wt (lb): 254 Ordering Physician: Anamaria Gonzalez MD Attending/Referring Phys: Sitecore Developer Amanda Rosenbaum RDCS Procedure CPT: Indications: tia Cardiac Hx: Technical Quality: Fair Contrast 1: Agitated Saline Total Dose (mL): Contrast 2: Total Dose (mL): MEASUREMENTS (Male / Female) Normal Values 2D ECHO LV Diastolic Diameter PLAX 5.3 cm 4.2 - 5.9 / 3.9 - 5.3 cm LV Systolic Diameter PLAX 3.7 cm IVS Diastolic Thickness 1.0 cm 0.6 - 1.0 / 0.6 - 0.9 cm LVPW Diastolic Thickness 1.1 cm 0.6 - 1.0 / 0.6 - 0.9 cm LV Relative Wall Thickness 0.4 RV Internal Dim ED PLAX 1.4 cm LA Systolic Diameter LX 4.1 cm 3.0 - 4.0 / 2.7 - 3.8 cm LV Diastolic Volume MOD BP 62.3 cm??? 67 - 155 / 56 - 104 cm??? LV Systolic Volume MOD BP 27.1 cm??? 22 - 58 / 19 - 49 cm??? LV Ejection Fraction MOD BP 56.4 % >= 55 % LV Cardiac Index MOD BP 714.9 cm???/min???m??? LV Diastolic Volume MOD 4C 61.4 cm??? LV Systolic Volume MOD 4C 33.4 cm??? LV Ejection Fraction MOD 4C 45.6 % LV Cardiac Index MOD 4C 569.3 cm???/min???m??? LV Diastolic Length 4C 7.1 cm LV Systolic Length 4C 6.1 cm LV Diastolic Volume MOD 2C 53.3 cm??? LV Systolic Volume MOD 2C 19.5 cm??? LV Ejection Fraction MOD 2C 63.4 % LV Cardiac Index MOD 2C 687.8 cm???/min???m??? LV Diastolic Length 2C 5.9 cm LV Systolic Length 2C 5.4 cm M-MODE Aortic Root Diameter MM 3.1 cm LA Systolic Diameter MM 4.0 cm LA Ao Ratio MM 1.3 AV Cusp Separation MM 2.1 cm DOPPLER Mitral E Point Velocity 62.9 cm/s Mitral A Point Velocity 61.0 cm/s Mitral E to A Ratio 1.0 MV Deceleration Time 288.7 ms MV E' Velocity 6.3 cm/s Mitral E to MV E' Ratio 10.0 TR Peak Velocity 164.6 cm/s TR Peak Gradient 10.8 mmHg FINDINGS Left Ventricle Left ventricular ejection fraction is estimated at 55-60 %. Normal left ventricular systolic function with no obvious regional wall motion abnormalities. Left ventricular cavity size normal. Right Ventricle Normal right ventricular size and function. Right ventricular systolic pressure within normal limits. Right Atrium Normal right atrial size. Negative agitated saline bubble study for right to left shunt. Left Atrium Normal left atrial size. Mitral Valve Structurally normal mitral valve. Trace mitral regurgitation. No mitral stenosis. Aortic Valve Trileaflet aortic valve. No aortic valve stenosis or regurgitation. Tricuspid Valve Structurally normal tricuspid valve. Trace tricuspid regurgitation. No tricuspid stenosis. Pulmonic Valve Structurally normal pulmonic valve. No pulmonic regurgitation. Trace pulmonic regurgitation. Pericardium No pericardial or pleural effusion. Aorta Normal size aortic root and proximal ascending aorta. CONCLUSIONS 1. Normal left ventricular size and systolic function 2. No evidence of shunting by contrast bubble study 3. Trace mitral and tricuspid regurgitation Previewed by: Dr. Talha Gonzalez MD (Electronically Signed) Final Date: 06 August 2024 14:01
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
[2024-08-06] MEDS: GABAPENTIN 300 MG CAP PO SCH (15:48)
[2024-08-06] MEDS: ATORVASTATIN 80 MG TAB PO SCH (19:55)
[2024-08-07] MEDS: methocarbamoL 750 MG TAB PO PRN (10:11)
--- NOTE | 2024-08-07 12:10 | P.PN ---
Subjective Progress Note Date: 08/07/24 49 year old M with PMH of HTN, HLD, chronic neck pain with h/o spinal cord surgery presents to the ED for feeling fuzzy, unable to finish his thoughts, unsteadiness and slurred speech. In the ED he underwent extensive evaluation. BP 157/101, HR 74, T 98F, RR 18, 98% on RA. CBC, Coag panel, CMP significant for ALT 56, total protein 8.6, alb 5.4. CPK 232. Troponin 0.057, 0.047, 0.026. EKG sinus rhythm. CT brain and CTA head and neck negative. CXR no acute process. Patient is admitted for further workup and management. 08/06 Patient was seen and examined. Patient reports improvement his speech issues. Continues tremors of the R 4th digit since C4-5 surgery. CPK 154. Troponins trending down as above. Discussed with Dr. Mccann, plans for MRI C- spine + EEG. 08/07 Patient was seen and examined. Reports muscle fasciculation in the left shoulder. Started on Gabapentin by Neurology yesterday for neuropathy. Lipid panel T. Chol 189, TG 456, HDL 34.2. Echo EF 55-60%, trace MR/TR. General: not toxic, no distress, appears at stated age Derm: warm, dry Head: atraumatic, normocephalic, symmetric Eyes: EOMI, no lid lag, anicteric sclera Mouth: no lip lesion, mucus membranes moist Cardiovascular: S1S2 reg, no murmur Lungs: Clear to auscultation BL Ext: no gross muscle atrophy, no edema, no contractures, Tremor R 4th digit. Neuro: no focal neuro deficits Psych: Alert, oriented, appropriate affect Based on my assessment of this patient, this patient meets a high complexity level of care. TIA: CT brain and CTA head and neck as above. Echo, MRI brain/C-spine, EEG ordered. ASA 81 mg PO QD. Lipitor 80 mg PO QHS. Brilinta 90 mg PO BID. Possibly switch Brilinta to Plavix. A1c pending. Neurochecks. Telemetry monitoring. PT/OT/ST consult. Neurology on board. Troponin elevation: Trending down. ACS ruled out. Related to above? Echo as above. Event monitor on discharge per Cardiology. Cardiology on board. Hypertension: Losartan 100 mg PO QD. HCTZ 12.5 mg PO QD. Dyslipidemia: Lipitor 80 mg PO QHS. Chronic neck pain: Tramadol 50 mg PO Q6Hm Robaxin 750 mg PO Q6H PRN. Resolved: Elevated CPK CODE STATUS: FULL CODE DVT Prophylaxis: Lovenox SQ GI Prophylaxis: Designated medical POA if patient is not able to make medical decisions for themselves: I have reviewed the following lean process deployment consultant notes: Neuro, Cardiology. I have reviewed the results of the following tests: Lipid panel, Echo. I have ordered the following tests: Echo, MRI brain/C-spine, EEG pending. I have discussed the care of this patient with the following independent historian: RN. I have independently interpreted the following test below: I have discussed the management of this patient with the following physician: Dr. Mccann Objective - Vital Signs Vital signs: Vital Signs Temp 97.6 F 08/07/24 07:19 Pulse 68 08/07/24 07:19 Resp 20 08/07/24 07:19 BP 150/88 08/07/24 07:19 Pulse Ox 96 08/07/24 07:19 FiO2 Intake & Output 08/06/24 08/07/24 08/07/24 18:59 06:59 18:59 Weight 115.212 kg 113.5 kg Other: Voiding Method Toilet Toilet # Voids 2 - Labs CBC & Chem 7: 08/05/24 16:40 08/05/24 16:40 Labs: Abnormal Lab Results - Last 24 Hours (Table) 08/05/24 Range/Units 16:40 Triglycerides 456.00 H (0.00-149.00) mg/dL VLDL Cholesterol, Calc 91.20 H (5.00-40.00) mg/dL HDL Cholesterol 34.20 L (40.00-60.00) mg/dL
--- NOTE | 2024-08-07 13:42 | P.PN ---
Subjective HISTORY OF PRESENT ILLNESS: This is a 49-year-old male with a past medical history significant for hypertension and hyperlipidemia. Patient does not follow with a performance specialist. We have been asked to see the patient in consultation for elevated troponins. Patient examined at the bedside in the emergency room. Patient states yesterday he was walking around [employer] when he began to feel "fuzzy" and was having a hard time of finishing his thoughts. He states later on in the day he was at home when his mother came to visit and she noticed that his speech was more delayed. He also reports he was still having problems collecting his thoughts. He states the symptoms lasted for about 5 hours total. He states this morning all his symptoms have resolved. He denies having any chest pain or pressure. Denies having any shortness of breath. He does report a history of hypertension and states that his PCP recently increased his blood pressure medications yesterday (HCTZ was added to losartan). Patient does report a history of spinal cord surgery in May. He reports he has been having tremors and twitching since his surgery and his surgeon has referred him to see a neurologist but he has not yet established an appointment. DIAGNOSTICS: - EKG reveals sinus mechanism with no signs of acute ischemia - Chest xray negative for acute process - Laboratory data: WBC 10.2. Hemoglobin 16.4. Platelet count 240. Sodium 139. Potassium 4.6. BUN 18. Creatinine 0.90. Troponin 0.057. 0.047. 0.026. - Current home cardiac medications include Lipitor 20 mg at night and losartanhydrochlorothiazide 100-12.5 mg daily. - No previous echocardiogram, stress test, or cardiac catheterization available in EMR for review 08/07/2024 Patient examined this morning at the bedside. Patient currently denies any chest pain or pressure. He denies any shortness of breath. Vital signs are stable. Telemetry reveals sinus mechanism. Echocardiogram completed revealing ejection fraction 55 to 60%, no evidence of shunting by bubble study, trace MR, trace TR. PHYSICAL EXAM: VITAL SIGNS: Reviewed. GENERAL: Well-developed in no acute distress. HEENT: Head is normocephalic. Pupils are equal, round. Sclerae anicteric. Mucous membranes of the mouth are moist. Neck supple. No JVD or thyromegaly LUNGS: Respirations even and unlabored. Lungs essentially clear to auscultation bilaterally. HEART: Regular rate and rhythm. S1 and S2 heard. ABDOMEN: Soft. Nondistended. Nontender. EXTREMITIES: Normal range of motion. No clubbing or cyanosis. Peripheral pulses intact. No lower extremity edema NEUROLOGIC: Awake and alert. Oriented x 3. ASSESSMENT: Slurred speech, inability to collect his thoughts, and feeling "fuzzy"; rule out neurologic etiology Minimally elevated troponin, likely type II NM, no evidence of acute coronary syndrome Hypertension Hyperlipidemia Recent spinal cord surgery, May 2024 Obesity: BMI 34.4 PLAN: An acute coronary event has been ruled out Continue to monitor blood pressure. No changes to antihypertensive regimen today. Continue telemetry monitoring Neurology following. Patient scheduled for MRI. 30-day event monitor at the time of discharge Patient to follow-up postdischarge with Dr. Gonzalez Further recommendations pending patient course Nurse practitioner note has been reviewed by physician. Signing provider agrees with the documented findings, assessment, and plan of care documented by MACHINE I CUTTER as a scribe. Objective - Vital Signs Vital signs: Vital Signs Temp 97.7 F 08/07/24 11:09 Pulse 71 08/07/24 13:33 Resp 16 08/07/24 11:09 BP 156/92 08/07/24 11:09 Pulse Ox 95 08/07/24 11:09 FiO2 Intake & Output 08/06/24 08/07/24 08/07/24 18:59 06:59 18:59 Intake Total 476 Balance 476 Weight 115.212 kg 113.5 kg Intake: Oral 476 Other: Voiding Method Toilet Toilet Toilet # Voids 2 1 - Labs CBC & Chem 7: 08/05/24 16:40 08/05/24 16:40 Labs: Abnormal Lab Results - Last 24 Hours (Table) 08/07/24 Range/Units 07:28 Hemoglobin A1c 6.4 H (<=6.0) %
[2024-08-07 15:26] LABS: Glucose,Whole Blood 133 mg/dL (70-110)
[2024-08-07] MEDS ORDERED: LORazepam 2 MG/ML INJ IV PRN (15:55)
--- NOTE | 2024-08-07 16:03 | CT ---
EXAMINATION TYPE: CT brain wo con DATE OF EXAM: 08/07/2024 3:55 PM COMPARISON: Recent CT study dated 08/05/2024. CLINICAL INDICATION: Male, 49 years old with history of speech difficulty, difficulty speeking TECHNIQUE: Brain: Axial CT images of the brain were obtained with coronal and sagittal reformats created and rev iewed. Contrast used: None. Oral contrast used: None. CT DLP: 1184.6 mGycm, Automated exposure control for dose reduction was used. FINDINGS: Brain: No acute intracranial hemorrhage, midline shift or significant mass effect. No sizable extract of flu id collection. Ventricles and sulci are within normal limits for size. Basal cisterns appear grossly patent. No depressed calvarial fracture. Minimal patchy periventricular and subcortical white matter hypoatte nuation which could reflect chronic vascular ischemic disease. Paranasal sinuses and mastoid air cell s grossly patent. IMPRESSION: No acute intracranial abnormality identified. Consider MRI for further evaluation if there is continu ed clinical concern for acute infarction or as clinically indicated. [facility], , 08/07/2024 4:00 PM
[2024-08-07] MEDS: levETIRAcetam 500 MG TAB PO SCH (16:14)
[2024-08-07] MEDS: GABAPENTIN 300 MG CAP PO SCH (16:14)
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
[2024-08-08 08:38] VITALS: TEMP 97.5
--- NOTE | 2024-08-08 11:48 | P.PN ---
Subjective HISTORY OF PRESENT ILLNESS: This is a 49-year-old male with a past medical history significant for hypertension and hyperlipidemia. Patient does not follow with a chemistry technical officer. We have been asked to see the patient in consultation for elevated troponins. Patient examined at the bedside in the emergency room. Patient states yesterday he was walking around [employer] when he began to feel "fuzzy" and was having a hard time of finishing his thoughts. He states later on in the day he was at home when his mother came to visit and she noticed that his speech was more delayed. He also reports he was still having problems collecting his thoughts. He states the symptoms lasted for about 5 hours total. He states this morning all his symptoms have resolved. He denies having any chest pain or pressure. Denies having any shortness of breath. He does report a history of hypertension and states that his PCP recently increased his blood pressure medications yesterday (HCTZ was added to losartan). Patient does report a history of spinal cord surgery in May. He reports he has been having tremors and twitching since his surgery and his surgeon has referred him to see a neurologist but he has not yet established an appointment. DIAGNOSTICS: - EKG reveals sinus mechanism with no signs of acute ischemia - Chest xray negative for acute process - Laboratory data: WBC 10.2. Hemoglobin 16.4. Platelet count 240. Sodium 139. Potassium 4.6. BUN 18. Creatinine 0.90. Troponin 0.057. 0.047. 0.026. - Current home cardiac medications include Lipitor 20 mg at night and losartanhydrochlorothiazide 100-12.5 mg daily. - No previous echocardiogram, stress test, or cardiac catheterization available in EMR for review 08/07/2024 Patient examined this morning at the bedside. Patient currently denies any chest pain or pressure. He denies any shortness of breath. Vital signs are stable. Telemetry reveals sinus mechanism. Echocardiogram completed revealing ejection fraction 55 to 60%, no evidence of shunting by bubble study, trace MR, trace TR. 08/08/24 Patient examined this morning at the bedside. Patient currently denies any c hest pain or pressure. He denies any shortness of breath. Vital signs are stable. Blood pressure slightly on the higher side. Telemetry reveals sinus mechanism. PHYSICAL EXAM: VITAL SIGNS: Reviewed. GENERAL: Well-developed in no acute distress. HEENT: Head is normocephalic. Pupils are equal, round. Sclerae anicteric. Mucous membranes of the mouth are moist. Neck supple. No JVD or thyromegaly LUNGS: Respirations even and unlabored. Lungs essentially clear to auscultation bilaterally. HEART: Regular rate and rhythm. S1 and S2 heard. ABDOMEN: Soft. Nondistended. Nontender. EXTREMITIES: Normal range of motion. No clubbing or cyanosis. Peripheral pulses intact. No lower extremity edema NEUROLOGIC: Awake and alert. Oriented x 3. ASSESSMENT: Slurred speech, inability to collect his thoughts, and feeling "fuzzy"; rule out neurologic etiology Minimally elevated troponin, likely type II MS, no evidence of acute coronary syndrome Hypertension Hyperlipidemia Recent spinal cord surgery, May 2024 Obesity: BMI 34.4 PLAN: An acute coronary event has been ruled out Continue to monitor blood pressure. No changes to antihypertensive regimen today. Continue telemetry monitoring Neurology following. Patient scheduled for MRI. 30-day event monitor at the time of discharge Stable for discharge from a cardiac standpoint Patient to follow-up postdischarge with Dr. Gonzalez Further recommendations pending patient course Nurse practitioner note has been reviewed by physician. Signing provider agrees with the documented findings, assessment, and plan of care documented by CHEST PAIN COORDINATOR as a scribe. Objective - Vital Signs Vital signs: Vital Signs Temp 97.5 F L 08/08/24 08:38 Pulse 88 08/08/24 08:38 Resp 16 08/08/24 08:38 BP 136/79 08/08/24 08:38 Pulse Ox 95 08/08/24 08:38 FiO2 Intake & Output 08/07/24 08/08/24 08/08/24 18:59 06:59 18:59 Intake Total 716 10 Balance 716 10 Weight 111.5 kg Intake: IV 10 Invasive Line 1 10 Oral 716 Other: Voiding Method Toilet Toilet Toilet # Voids 1 1 # Bowel Movements 0 - Labs CBC & Chem 7: 08/05/24 16:40 08/05/24 16:40 Labs: Abnormal Lab Results - Last 24 Hours (Table) 08/07/24 08/07/24 Range/Units 07:28 15:24 POC Glucose (mg/dL) 133 H (70-110) mg/dL Hemoglobin A1c 6.4 H (<=6.0) %
--- NOTE | 2024-08-08 12:18 | EEG ---
ELECTROENCEPHALOGRAM REPORT PREAMBLE: This is a 49-year-old male, came to the hospital with episode of slurred speech and some confusion. Rule out seizures. The patient has been having right-sided body twitch and tremor. CURRENT MEDICATIONS: 1. Aspirin. 2. Lipitor. 3. Lovenox. 4. Hyzaar. 5. Ativan. 6. Cozaar. 7. Robaxin. 8. Brilinta. 9. Ultram. EEG FINDINGS: This is a 21-channel digital EEG recorded with video component, utilizing 10/20 international system with referential and bipolar montages. Background consists of moderately well developed, not very well regulated, mixed frequencies of low amplitude mixed alpha with some theta activity seen in bihemispheric region. Some superimposed mild low-voltage fast frequency beta activity was also seen. Background seems to be very minimally reactive to eye opening or closing. Photic driving response was not seen. Different stages of sleep were not seen. No focal or generalized epileptiform activity was seen. IMPRESSION: This is a mildly abnormal EEG, due to slightly low amplitude, activity with mix of slow and fast frequency activity, suggestive of mild encephalopathy or medication effect. No focal, lateralized, or epileptiform activity was seen. MMODL / IJN: [id number] /
--- NOTE | 2024-08-08 12:29 | P.PN ---
Subjective Progress Note Date: 08/08/24 49 year old M with PMH of HTN, HLD, chronic neck pain with h/o spinal cord surgery presents to the ED for feeling fuzzy, unable to finish his thoughts, unsteadiness and slurred speech. In the ED he underwent extensive evaluation. BP 157/101, HR 74, T 98F, RR 18, 98% on RA. CBC, Coag panel, CMP significant for ALT 56, total protein 8.6, alb 5.4. CPK 232. Troponin 0.057, 0.047, 0.026. EKG sinus rhythm. CT brain and CTA head and neck negative. CXR no acute process. Patient is admitted for further workup and management. Cardiology consulted for elevated Troponin. Echo showed normal LV size and systolic function without shunt. Cardiology recommended 30 day event monitor on discharge. Signed off. Neurology consulted, started on Gabapentin + Keppra with plans for MRI brain/C- spine and EEG hopefully to be done on 08/08. Lipid panel T. Chol 189, TG 456, HDL 34.2. A1c 6.4. 08/08 Patient was seen and examined. Patient with recurrent episode of slurred speech and increased tremors yesterday, resolved today. Neurology started Keppra 500 mg PO BID and Gabapentin increased to 300 mg PO TID. A1c is 6.4. Ammonia < 9. Plans for EEG, MRI brain and MRI C-spine today. General: not toxic, no distress, appears at stated age Derm: warm, dry Head: atraumatic, normocephalic, symmetric Eyes: EOMI, no lid lag, anicteric sclera Mouth: no lip lesion, mucus membranes moist Cardiovascular: S1S2 reg, no murmur Lungs: Clear to auscultation BL Ext: no gross muscle atrophy, no edema, no contractures, Tremor R 4th digit. Neuro: no focal neuro deficits Psych: Alert, oriented, appropriate affect Based on my assessment of this patient, this patient meets a high complexity level of care. TIA: CT brain and CTA head and neck as above. MRI brain/C-spine, EEG ordered. ASA 81 mg PO QD. Lipitor 80 mg PO QHS. Brilinta 90 mg PO BID. Possibly switch Brilinta to Plavix. A1c, Echo and Lipid panel as above. Neurochecks. Telemetry monitoring. PT/OT/ST consult. Neurology on board. Troponin elevation: Trending down. ACS ruled out. Related to above? Echo as above. Event monitor on discharge per Cardiology. Cardiology on board. Pre-DM: A1c 6.4. Would recommend starting Metformin on discharge. Hypertension: Losartan 100 mg PO QD. HCTZ 12.5 mg PO QD. Dyslipidemia: Lipitor 80 mg PO QHS. Chronic neck pain: Tramadol 50 mg PO Q6Hm Robaxin 750 mg PO Q6H PRN. Resolved: Elevated CPK CODE STATUS: FULL CODE DVT Prophylaxis: Lovenox SQ GI Prophylaxis: Designated medical POA if patient is not able to make medical decisions for themselves: I have reviewed the following outside solar sales consultant notes: Cardiology. I have reviewed the results of the following tests: Ammonia, A1c. I have ordered the following tests: EEG, MRI brain and MRI C-spine pending. I have discussed the care of this patient with the following independent historian: HARSH. I have independently interpreted the following test below: I have discussed the management of this patient with the following physician: Objective - Vital Signs Vital signs: Vital Signs Temp 97.5 F L 08/08/24 08:38 Pulse 88 08/08/24 08:38 Resp 16 08/08/24 08:38 BP 136/79 08/08/24 08:38 Pulse Ox 95 08/08/24 08:38 FiO2 Intake & Output 08/07/24 08/08/24 08/08/24 18:59 06:59 18:59 Intake Total 716 10 Balance 716 10 Weight 111.5 kg Intake: IV 10 Invasive Line 1 10 Oral 716 Other: Voiding Method Toilet Toilet Toilet # Voids 1 1 # Bowel Movements 0 - Labs CBC & Chem 7: 08/05/24 16:40 08/05/24 16:40 Labs: Abnormal Lab Results - Last 24 Hours (Table) 08/07/24 08/07/24 Range/Units 07:28 15:24 POC Glucose (mg/dL) 133 H (70-110) mg/dL Hemoglobin A1c 6.4 H (<=6.0) %
--- NOTE | 2024-08-08 14:18 | MR ---
EXAMINATION TYPE: MR brain/cspine wo DATE OF EXAM: 08/08/2024 1:29 PM COMPARISON: 08/05/2024. CLINICAL INDICATION: Male, 49 years old with history of TIA, Visual disturbance, tremors, speech dist urbance TECHNIQUE: Multi planar, multi sequence imaging was performed through the brain including: T1, T2, Inversion rec overy, Diffusion weighted imaging, and gradient echo imaging. No gadolinium was given. Multi planar, multi sequence imaging was performed utilizing: T1-weighted, T2-weighted, and turbo inv ersion recovery imaging of the cervical spine. IV Contrast: None FINDINGS: The jean-white junctions, ventricular system, basal cisterns appear unremarkable. Midline structures show no abnormality. Diffusion-weighted imaging shows no evidence of restricted diffusion. The suscep tibility weighted images do not reveal any evidence for micro-hemorrhage. The bone marrow signal is within normal limits. Paranasal sinuses and mastoid air cells: No significant paranasal sinus disease. Visualized orbits: Orbital contents are intact. Alignment: The cervical vertebral bodies have preserved heights. Alignment is within normal limits gi michelle patient positioning. Bones: Anterior fixation hardware at the level of C4 and C5 is present. Scattered Modic endplate reddy ges with osteophytes and disc space narrowing. Multilevel degenerative disc disease is noted and most pronounced at the C5-C7 vertebral levels. Cord: There is a T2 cord signal within the central cord measuring up to 45 x 4 x 4 mm and axial imagi ng measurements this extends into level of C6-T1. The spinal cord is unremarkable with regards to the ir signal intensity and morphology. Discs: Intervertebral disc signal is maintained. C2-C3: No significant disc pathology. The spinal canal is patent. No neural foraminal stenosis. C3-C4: No significant disc pathology. The spinal canal is patent. No neural foraminal stenosis. C4-C5: No significant disc pathology. The spinal canal is patent. Bilateral facet and uncovertebral joint arthropathy are present with mild bilateral neural foraminal stenosis. C5-C6: No significant disc pathology. The spinal canal is patent. Bilateral facet and uncovertebral joint arthropathy are present with mild bilateral neural foraminal stenosis. C6-C7: No significant disc pathology. The spinal canal is patent. No neural foraminal stenosis. C7-T1: No significant disc pathology. The spinal canal is patent. No neural foraminal stenosis. Other: None. IMPRESSION: 1. No evidence for disc herniation or significant spinal canal stenosis. 2. 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 3. Mild disc degeneration with associated osteoarthritic changes. 4. No evidence of intracranial mass or acute/subacute infarct. [facility], Workstation: 3, 08/08/2024 2:15 PM
[2024-08-08 15:52] VITALS: BP 128/79; PULSE 99; RESP 18
--- NOTE | 2024-08-08 16:35 | P.DS ---
Providers Date of admission: 08/05/24 20:02 Expected date of discharge: 08/08/24 Attending physician: Anamaria Gonzalez MD Consults: 08/05/24 20:00 Consult Physician Routine Consulting Provider: Ramon Mccann Consult Reason/Comments: CVA Do you want consulting provider notified?: Yes 08/06/24 02:03 Consult Physician Urgent Consulting Provider: Morris Erickson Consult Reason/Comments: elev trop Do you want consulting provider notified?: Yes Primary care physician: Stewart [facility] Course: 49 year old M with PMH of HTN, HLD, chronic neck pain with h/o spinal cord surgery presents to the ED for feeling fuzzy, unable to finish his thoughts, unsteadiness and slurred speech. In the ED he underwent extensive evaluation. BP 157/101, HR 74, T 98F, RR 18, 98% on RA. CBC, Coag panel, CMP significant for ALT 56, total protein 8.6, alb 5.4. CPK 232. Troponin 0.057, 0.047, 0.026. EKG sinus rhythm. CT brain and CTA head and neck negative. CXR no acute process. Patient is admitted for further workup and management. Cardiology consulted for elevated Troponin. Echo showed normal LV size and systolic function without shunt. Cardiology recommended 30 day event monitor on discharge. Signed off. Neurology consulted, started on Gabapentin + Keppra with plans for MRI brain/C- spine and EEG hopefully to be done on 08/08. Lipid panel T. Chol 189, TG 456, HDL 34.2. A1c 6.4. 08/08 Patient was seen and examined. Patient with recurrent episode of slurred speech and increased tremors yesterday, resolved today. Neurology started Keppra 500 mg PO BID and Gabapentin increased to 300 mg PO TID. A1c is 6.4. Ammonia < 9. Plans for EEG, MRI brain and MRI C-spine today. MRI and C-spine showed no CVA, central cord syrinx extending C6-T1. Discussed with Dr. Sanchez, MARISOL Brilinjackson and Keppra, continue Gabapentin, cleared for discharge. Discharge Plan: Prescription for Gabapentin sent to the pharmacy. Event monitor hooked up. Follow up with PCP within 1-2 days of discharge. Follow up with Neurology and Neurosurgery within 1 week of discharge. General: not toxic, no distress, appears at stated age Derm: warm, dry Head: atraumatic, normocephalic, symmetric Eyes: EOMI, no lid lag, anicteric sclera Mouth: no lip lesion, mucus membranes moist Cardiovascular: S1S2 reg, no murmur Lungs: Clear to auscultation BL Ext: no gross muscle atrophy, no edema, no contractures, Tremor R 4th digit. Neuro: no focal neuro deficits Psych: Alert, oriented, appropriate affect Discharge Diagnosis: Slurred Speech and fasiculations likely related to central cord syrinx Troponin elevation Pre-DM Hypertension Dyslipidemia Chronic neck pain Resolved: Elevated CPK This complex discharge took 35 minutes to complete. Patient Condition at Discharge: Stable Plan - Discharge Summary Discharge Rx Participant: Yes New Discharge Prescriptions: New Gabapentin [Neurontin] 300 mg PO TID #90 cap Continue traMADol HCl [Ultram] 50 mg PO Q6H PRN PRN Reason: Pain methocarbamoL [Robaxin-750] 750 mg PO Q6H PRN PRN Reason: Muscle Spasm HYDROcodone/APAP 5-325MG [[place] 5-325] 1 tab PO Q4HR PRN PRN Reason: Pain Multivit-Mins/Iron/Folic/Lycop [Centrum Men's Tablet] 1 tab PO DAILY Losartan/Hydrochlorothiazide [Hyzaar 100-12.5 Tablet] 1 tab PO DIRECTED Atorvastatin [Lipitor] 20 mg PO HS Discontinued Losartan Potassium 100 mg PO DIRECTED Discharge Medication List Atorvastatin [Lipitor] 20 mg PO HS 08/05/24 [History] HYDROcodone/APAP 5-325MG [[place] 5-325] 1 tab PO Q4HR PRN 08/05/24 [History] Losartan/Hydrochlorothiazide [Hyzaar 100-12.5 Tablet] 1 tab PO DIRECTED 08/05/24 [History] Multivit-Mins/Iron/Folic/Lycop [Centrum Men's Tablet] 1 tab PO DAILY 08/05/24 [History] methocarbamoL [Robaxin-750] 750 mg PO Q6H PRN 08/05/24 [History] traMADol HCl [Ultram] 50 mg PO Q6H PRN 08/05/24 [History] Gabapentin [Neurontin] 300 mg PO TID #90 cap 08/08/24 [Rx] Follow up Appointment(s)/Referral(s): Talha Gonzalez MD [STAFF PHYSICIAN] - 2 Weeks Stewart Shankar MD [Primary Care Provider] - 1-2 days Perry Obrien DO [STAFF PHYSICIAN] - 1 Week Activity/Diet/Wound Care/Special Instructions: Follow up with Neurosurgery within 1 week of discharge. Discharge Disposition: HOME SELF-CARE
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
== END 2024-08-08 17:25 | disposition home or self-care (01) | DRG 91 ==
LOC: EC 15:54 → 3SCARD 20:02
PROVIDERS: ADMIT Internal Medicine; ATTEND Internal Medicine
PROC: 4A00X4Z Measurement of Central Nervous Electrical Activity, External Approach (ICD-10-PCS; principal; 2024-08-08)
DX: G95.89 Other specified diseases of spinal cord (principal); I21.A1 Myocardial infarction type 2; R47.01 Aphasia; E66.9 Obesity, unspecified; Z68.34 Body mass index [BMI] 34.0-34.9, adult; E78.5 Hyperlipidemia, unspecified; G62.9 Polyneuropathy, unspecified; G89.29 Other chronic pain; I10 Essential (primary) hypertension; M54.2 Cervicalgia; I08.1 Rheumatic disorders of both mitral and tricuspid valves; R73.03 Prediabetes; R47.1 Dysarthria and anarthria; R25.8 Other abnormal involuntary movements; R25.3 Fasciculation; Z87.828 Personal history of other (healed) physical injury and trauma; Z79.02 Long term (current) use of antithrombotics/antiplatelets; Z79.82 Long term (current) use of aspirin; Z79.899 Other long term (current) drug therapy; Z98.1 Arthrodesis status
CPT/HCPCS: 36415; 70450; 70496; 70498; 70551; 71046; 72141; 80053; 80061; 82140; 82550; 83036; 83721; 84484; 85025; 85610; 85730; 93005; 93270; 93306; 95816; 96372; 99291

== ENCOUNTER → 2024-10-07 | Outpatient (CLI) | payer MEDICAID ==
--- NOTE | 2024-10-07 18:33 | CA ---
Stress Echo Report Antonino Love Age: 49 Gender: M : 1975 Exam Date: 10/07/2024 11:37 Exam Location: [facility] Ht (in): 73 Wt (lb): 253 Ordering Physician: Talha Gonzalez MD ([id number]) Referring Physician: Talha Gonzalez MD ([id number]) Side Guider: COLLEEN Technologist Procedure CPT: Indication: I10 Essential Hypertension ICD-9 Codes: Rhythm: Patient History: HTN, HIGH CHOL, FAMILY HX. Cardiac Medications: Medications in past 24 hours: Contrast: Stress Results Protocol: Alex Total dose(mL): Exercise Duration (min:sec): Max ST Depression (mm): Angina Score: To Score: METS: 10.9 Resting HR: 77 Resting BP: 145 / 100 Peak HR: 158 Peak BP: 180 / 91 Max Predicted HR: 171 92 % Max Predicted HR Target HR: 145 Double Product: 43000 Stress Summary: BP Response: Reason for Termination: Cardiac Symptoms: ECG Analysis Resting ECG: Stress ECG: Arrhythmia: Echo Analysis Resting Echo: Peak Echo Analysis: MEASUREMENTS (Male/Female) Normal Values CONCLUSIONS Good exercise capacity of 9-1/2 minutes, adequate workload achieved Abnormal EKG response to exercise with a [address] depression towards peak exercise and early recovery No echocardiographic evidence for ischemia Dr. Issa Javier MD (Electronically Signed) Final Date: 07 October 2024 18:32
== END | disposition home or self-care (01) ==
LOC: RADNMMAIN 10:46
PROVIDERS: ATTEND Internal Medicine Interventional Cardiology
DX: I10 Essential (primary) hypertension (principal); R94.31 Abnormal electrocardiogram [ECG] [EKG]
CPT/HCPCS: 93351

== ENCOUNTER → 2024-11-04 | Outpatient (CLI) | payer MEDICAID ==
[2024-11-04 10:54] LABS: Basophils # (A) 0.07 X 10*3/uL (0.00-0.10); Basophils % (A) 0.8 %; Eosinophils # (A) 0.26 X 10*3/uL (0.04-0.35); Eosinophils % (A) 2.9 %; HGB 14.5 g/dL (13.0-17.0); Lymphocytes # (A) 2.27 X 10*3/uL (0.90-5.00); Lymphocytes % (A) 25.7 %; MCH 30.5 pg (27.0-32.0); MCV 92.6 FL (80.0-97.0); Mean Platelet Volume 12.3 FL (9.5-12.2); Monocytes # (A) 0.65 X 10*3/uL (0.20-1.00); Monocytes % (A) 7.4 %; NRBC Per 100 WBC 0 X 10*3/uL (0.00-0.01); Neutrophils # (A) 5.54 X 10*3/uL (1.80-7.70); Neutrophils % (A) 62.7 %; Platelet Count 211 X 10*3/uL (140-440); RBC 4.75 X 10*6/uL (4.40-5.60); RDW 12.9 % (11.5-14.5); WBC 8.83 X 10*3/uL (4.50-10.00)
[2024-11-04 11:04] LABS: Blood Urea Nitrogen 25.5 mg/dL (9.0-27.0); Chloride 105 mmol/L (96-109); Potassium 4.5 mmol/L (3.5-5.5); Sodium 142 mmol/L (135-145)
== END | disposition home or self-care (01) ==
LOC: LABPAT 07:27
PROVIDERS: ATTEND Internal Medicine Interventional Cardiology
DX: Z01.812 Encounter for preprocedural laboratory examination (principal); R06.02 Shortness of breath
CPT/HCPCS: 80051; 82565; 84520; 85025

== ENCOUNTER 2024-11-09 08:03 | Day surgery (SDC) | payer MEDICAID ==
[2024-11-07 15:09] VITALS: BMI 33.6
[~2024-11-09 08:03] MED LIST: ALPRAZolam 0.25 MG TAB PO PRN; ALPRAZolam 0.5 MG TAB PO PRN; NITROGLYCERIN SL TABS 0.4 MG TAB SUBLINGUAL PRN
[2024-11-09] MEDS: SODIUM CHLORIDE 0.9% 1,000 ML in EMPTY BAG 1 BAG IV SCH (08:37)
[2024-11-09] MEDS: ASPIRIN 325 MG TAB PO ONE (08:38)
[2024-11-09] MEDS: IV FLUID CONTINUATION 1,000 ML IV ONE (08:38)
[2024-11-09 08:48] VITALS: TEMP 97.6
[2024-11-09] MEDS: ATORVASTATIN 80 MG TAB PO ONE (08:50)
[2024-11-09] MEDS: HEPARIN SODIUM,PORCINE (1 ML) 2,500 UNIT in SODIUM CHLORIDE 0.9% 250 ML IRRIGATION PRN (09:44)
[2024-11-09] MEDS: fentaNYL (PF) 50 MCG/ML 2 ML AMP IVP ONE (09:44)
[2024-11-09] MEDS: HEPARIN SODIUM,PORCINE 10,000 UNIT in SODIUM CHLORIDE 0.9% 1,000 ML IRRIGATION PRN (09:44)
[2024-11-09] MEDS: LIDOCAINE 1% INJ 10MG/ML (20 ML MDV) SQ ONE (09:50)
[2024-11-09] MEDS: VERAPAMIL SYRINGE (5 MG/10 ML) INTRAARTER ONE (09:51)
[2024-11-09] MEDS: HEPARIN SODIUM 1,000 UN/ML (10ML VL) IV ONE (09:56)
[2024-11-09] MEDS: IOPAMIDOL-370 100ML BTL INJ ONE (10:04)
[2024-11-09] MEDS ORDERED: RX INFO: IV CONTRAST WAS GIVEN 1 EACH MISC MISCELLANE PRN (10:24)
[2024-11-09] MEDS ORDERED: NON FORMULARY DRUG (Losartan/Hydrochlorothiazide [Hyzaar 100-12.5 Tablet] 1 EACH Tablet) PO SCH (10:30)
[2024-11-09] MEDS ORDERED: SODIUM CHLORIDE 0.9% 1,000 ML IV SCH (10:30)
--- NOTE | 2024-11-09 10:33 | P.CARDCATH ---
Date of Procedure: 11/09/24 Description of Procedure: Cardiac Catheterization: The patient is a 49-year-old male with a history of hypertension hyperlipidemia who recently underwent a stress echocardiogram with no chest discomfort, ST depression but no reported segmental wall motion abnormality. Because of those results he underwent a CT angiogram of his coronary arteries that showed severe multivessel disease. Recommendations were made regarding cardiac catheterization, the risks and the complications were discussed with the patient who is in full understanding and agreement. Procedure Description: Patient was brought to labor conciliator in fasting semi-sedated state after receiving Fentanyl and Benadryl achieiving moderate conscious sedated state. Using Xylocaine Anesthesia and modified Seldinger technique, a 6-Iranian sheath was introduced in the right radial artery . Subsequently, selective coronary angiography was performed using a 5-Iranian 3.5 bend Marie catheter. Multiple views of the coronary artery including hemiaxial views were obtained. The right Marie catheter was used to cross the aortic valve and LVEDP was calculated. Following that, catheter and sheath were removed. Hemostasis was obtained with deployment of vascular band . There was no immediate complication. Patient was returned to room in stable condition. Of note, the patient received a total of 5000 units of intravenous heparin as well as intra-arterial verapamil. Findings: Left main: This is a large size vessel, bifurcating into LAD and left circumflex, the lumen of the left main is smaller than the proximal LAD consistent with diffuse disease. The ostium of the left main has a 70% obstructive plaque. There was ventricularization of the pressure during imaging LAD: This is a large size vessel, reaching to the apex with a wraparound apex segment giving rise to 3 diagonal branch, the first diagonal branch has a 70% plaque at the ostium, the mid LAD in the distal proximal segment of the LAD has intimal disease of 20 to 30%, the rest of the vessel has no high-grade stenosis Left circumflex: This is a nondominant vessel, large in caliber, giving rise to 2 obtuse marginal branch the first 1 is large in caliber. The first obtuse marginal branch has intimal disease of 20% with no high-grade stenosis. RCA: This is a large dominant vessel, tortuous in the midsegment, bifurcating distally to PDA and PLV. The mid distal segment and the distal RCA have eccentric lesions of 70 to 80%, the PDA and PLV have no high-grade stenosis. Left Ventriculogram: Not performed Hemodynamics: There was no gradient across the aortic valve, LVEDP was 20-22 mmHg Conclusion: 1. Significant obstructive disease in the ostium of the left main with diffuse disease in the left main 2. Significant disease at the ostium of the first diagonal branch with mild disease in the mid LAD 3. Mild disease in the first OM 4. Severe disease in the mid and distal RCA Recommendations: In view of the finding and the anatomy I have recommended to obtain a surgical evaluation for possible CABG. In the meantime he will continue maximum medical therapy. The rationale was discussed with the patient and his family and therefore a standing in agreement. Duration of sedation is 13 minutes.
[2024-11-09 10:59] VITALS: RESP 16
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
--- NOTE | 2024-11-09 12:44 | US ---
EXAMINATION TYPE: US vein mapping BILAT DATE OF EXAM: 11/09/2024 12:25 PM COMPARISON: NONE CLINICAL INDICATION: Male, 49 years old with history of preop cardiac surgery; pre op cardiac surgery , Preop- Cardiac Surgery TECHNIQUE: Grayscale and color Doppler imaging of the lower extremity venous system. SIDE PERFORMED: Bilateral FINDINGS: PATIENT HISTORY: Smoker: no Discoloration: no Hypertension: yes Paralysis: no Varicosities: no Edema: no DUPLEX FINDINGS: Greater Saphenous: Color flow seen Measurements in mm: Right Greater Saphenous: Groin: 6.8 x 6.3 mm High Thigh: 5.6 x 5.9 mm Mid Thigh: 5.8 x 4.9 mm Above Knee: 6.3 x 5.0 mm Knee: 6.4 x 5.0 mm Below Knee: 5.3 x 4.2 mm Mid Calf: 3.8 x 3.0 mm At Ankle: 3.2 x 2.6 mm Left Greater Saphenous: Groin: 6.7 x 6.0 mm High Thigh: 5.2 x 5.3 mm Mid Thigh: 5.4 x 4.1 mm Above Knee: 5.0 x 4.6 mm Knee: 4.9 x 3.9 mm Below Knee: 4.1 x 3.8 mm Mid Calf: 3.4 x 2.9 mm At Ankle: 4.3 x 3.7 mm IMPRESSION: 1. No evidence for occlusion. 2. GSV measurements listed above. 3. Performing surgeon to determine viability as conduit. [facility], , 11/09/2024 12:42 PM
--- NOTE | 2024-11-09 12:44 | US ---
EXAMINATION TYPE: Pre-Operative Non-Invasive Evaluation of the hand for Potential Radial Artery Juan hanson, Measurements only DATE OF EXAM: 11/09/2024 12:24 PM CLINICAL INDICATION: Male, 49 years old with history of measurements only; pre op cardiac surgery, Pr eop- Cardiac Surgery TECHNIQUE:Grayscale and color Doppler imaging of the radial artery(s) SIDE PERFORMED: Left FINDINGS: Dominant hand: Duplex Findings: Radial Artery: Color flow seen Measurements in mm, transverse view: Left Radial: Proximal: 4.0 x 4.0 mm Mid: 3.8 x 3.8 mm Distal: 4.5 x 3.9 mm IMPRESSION: 1. No evidence for vascular occlusion. 2. Measurements as described above. [facility], , 11/09/2024 12:41 PM
[2024-11-09 17:25] VITALS: BP 134/64; PULSE 68
[2024-11-09] MEDS ORDERED: ATORVASTATIN 20 MG TAB PO SCH (21:00)
[2024-11-10] MEDS ORDERED: ISOSORBIDE MONONITRATE ER 30 MG TAB.ER.24H PO SCH (09:00)
[2024-11-10] MEDS ORDERED: ASPIRIN 81 MG PO SCH (09:00)
[2024-11-10] MEDS ORDERED: amLODIPine 5 MG TAB PO SCH (09:00)
[2024-11-10 11:54] LABS: Appearance,Urine Clear (Clear); Bilirubin,Urine Negative (Negative); Blood,Urine Negative (Negative); Color,Urine Light Yellow; Glucose,Urine (UA) Negative (Negative); Ketones,Urine Negative (Negative); Leukocyte Esterase,Urine Negative (Negative); Nitrite,Urine Negative (Negative); Protein,Urine Negative (Negative); Specific Gravity,Urine 1.019 (1.001-1.035); Urobilinogen,Urine <2.0 mg/dL (<2.0)
== END 2024-11-09 14:42 | disposition home or self-care (01) ==
LOC: CATHCVL 08:03
PROVIDERS: ATTEND Internal Medicine Interventional Cardiology
DX: I25.10 Atherosclerotic heart disease of native coronary artery without angina pectoris (principal); K21.9 Gastro-esophageal reflux disease without esophagitis; K30 Functional dyspepsia; R73.03 Prediabetes; I10 Essential (primary) hypertension; E78.2 Mixed hyperlipidemia; Z01.810 Encounter for preprocedural cardiovascular examination; Z83.3 Family history of diabetes mellitus; Z82.49 Family history of ischemic heart disease and other diseases of the circulatory system; Z79.02 Long term (current) use of antithrombotics/antiplatelets; Z79.899 Other long term (current) drug therapy
CPT/HCPCS: 94150; 93458; 81003; 87070; 93931; 93970; 99152; C1894; C1769; J1644 ×3; J2003; J3010; Q9967; 80061; 80074; 84443; 85610; 85730; 86850; 86900; 86901

== ENCOUNTER 2024-11-18 05:33 | Inpatient (IN) | payer MEDICAID ==
[2024-11-09 14:58] LABS: INR 0.9 (<1.2); Partial Thromboplastin Time 24.7 sec (22.0-30.0); Prothrombin Time 10.5 sec (10.0-12.5)
[2024-11-09 18:28] LABS: Hepatitis A Antibody IgM Nonreactive (Nonreactive); Hepatitis B Core IgM Nonreactive (Nonreactive); Hepatitis B Surface Antigen Nonreactive (Nonreactive); Hepatitis C IgG Antibody Nonreactive (Nonreactive)
[2024-11-09 19:11] LABS: Chol/HDL Ratio 4.71 Ratio; LDL Cholesterol,Calculated 46.5 mg/dL (0.0-131.0)
[2024-11-18] MEDS: IV FLUID CONTINUATION 1,000 ML IV ONE (06:12)
[2024-11-18] MEDS: METOPROLOL TARTRATE 12.5 MG TAB PO ONE (06:20)
[2024-11-18] MEDS: ATORVASTATIN 10 MG TAB PO ONE (06:20)
[2024-11-18] MEDS: CHLORHEXIDINE GLUCONATE 15 ML CUP MUCOUS MEM ONE (06:20)
[2024-11-18 06:35] LABS: Glucose,Whole Blood 138 mg/dL (70-110)
--- NOTE | 2024-11-18 07:01 | P.PN ---
Progress Note - Text Progress Note Date: 11/18/24 A 5 m walk test was completed with the patient, tolerated well without complaints. Time 1: 2.43 seconds, time 2: 2.65 seconds, time 3: 2.33 seconds.
--- NOTE | 2024-11-18 07:30 | XR ---
EXAMINATION TYPE: XR chest 2V DATE OF EXAM: 11/18/2024 6:12 AM COMPARISON: 08/05/2024 CLINICAL INDICATION: Male, 49 years old with history of Pre surgical, for heart surgery, TECHNIQUE: Frontal and lateral views FINDINGS: Heart upper limits of normal in size. Aorta and pulmonary vasculature within normal limits. Hazy dens ities relating to overlying soft tissue. No consolidation or pleural effusion seen. IMPRESSION: No acute cardiopulmonary process. [facility], Workstation: [facility], 11/18/2024 7:28 AM
[2024-11-18 07:41] LABS: ALT 52 U/L (4-49); AST 29 U/L (17-59); African American GFR (CKD) >90 (>60 ml/min/1.73 sqM); Albumin 4.7 g/dL (3.5-5.0); Alkaline Phosphatase 76 U/L (38-126); Anion Gap 9 mmol/L; Blood Urea Nitrogen 21 mg/dL (9-20); Calcium 9.3 mg/dL (8.4-10.2); Carbon Dioxide 25 mmol/L (22-30); Chloride 106 mmol/L (98-107); Glucose 132 mg/dL (74-99); Non-African American GFR(CKD) >90 (>60 ml/min/1.73 sqM); Sodium 140 mmol/L (137-145); Total Bilirubin 0.8 mg/dL (0.2-1.3); Total Protein 7.4 g/dL (6.3-8.2)
[2024-11-18] MEDS ORDERED: fentaNYL (PF) 50 MCG/ML 50 ML VIAL ONE (07:50)
[2024-11-18] MEDS ORDERED: WATER FOR INJECTION, STERILE 10 ML VIAL IV ONE (07:50)
[2024-11-18] MEDS ORDERED: INSULIN REGULAR 100 UNIT/ML VIAL (IV) ONE (07:50)
[2024-11-18] MEDS ORDERED: VECURONIUM 10 MG VIAL IV ONE (07:50)
[2024-11-18] MEDS ORDERED: MIDAZOLAM HCL 10 MG/10 ML VIAL ONE (07:50)
[2024-11-18] MEDS ORDERED: ePHEDrine 50 MG/ML 1 ML VIAL ONE (07:50)
[2024-11-18] MEDS ORDERED: PROPOFOL 10 MG/ML 20 ML VIAL IV ONE (07:50)
[2024-11-18] MEDS ORDERED: GLYCOPYRROLATE 0.2 MG/ML 2 ML VIAL ONE (07:50)
[2024-11-18] MEDS ORDERED: HEPARIN SODIUM,PORCINE 5,000 UNIT/ML 1 ML VIAL ONE (07:50)
[2024-11-18] MEDS ORDERED: PROTAMINE SULFATE 10 MG/ML 25 ML VIAL IV ONE (07:50)
[2024-11-18] MEDS ORDERED: SODIUM BICARB 8.4% 50 ML SYR (1 MEQ/ML) ONE (07:50)
[2024-11-18] MEDS ORDERED: NITROGLYCERIN-D5W PMX 50 MG/250 ML BOTTLE IV ONE (07:50)
[2024-11-18] MEDS ORDERED: HEPARIN SODIUM,PORCINE 10,000 UNIT/ML 1 ML VIAL ONE (07:50)
[2024-11-18] MEDS ORDERED: ALBUMIN HUMAN 5% (25gm) 500 ML VIAL IVPB ONE (07:50)
[2024-11-18] MEDS ORDERED: PHENYLEPHRINE 10 MG/ML VIAL ONE (07:50)
[2024-11-18 08:39] LABS: ABG Base Excess -1.3 mmol/L; ABG Glucose Whole Blood 121 mg/dL (75-99); ABG HCO3 24 mmol/L (21-25); ABG Hematocrit 38 % (34.0-46.0); ABG Ionized Calcium 4.6 mg/dL (4.5-5.3); ABG Lactic Acid Whole Blood 1.5 mmol/L (0.5-1.6); ABG Oxygen Saturation 98.7 % (94-97); ABG PCO2 42 mmHg (35-45); ABG PH 7.36 (7.35-7.45); ABG PO2 157 mmHg (83-108); ABG Sodium Whole Blood 142 mmol/L (135-146); ABG TCO2 22 mmol/L (19-24); Allen Test Performed? Yes
[2024-11-18] MEDS: PAPAVERINE 360 MG in SODIUM CHLORIDE 0.9% 90 ML IV ONE (09:12)
[2024-11-18] MEDS: SODIUM CHLORIDE 0.9% 500 ML 500 ML with HEPARIN SODIUM,PORCINE (1 ML) 5,000 UNIT IV ONE (09:12)
[2024-11-18] MEDS: DILTIAZEM 125 MG in SODIUM CHLORIDE 0.9% 100 ML IV ONE (09:13)
[2024-11-18] MEDS: ceFAZolin 1,000 MG in SODIUM CHLORIDE 0.9% 1,000 ML IRRIGATION ONE (09:13)
--- NOTE | 2024-11-18 10:44 | P.ANPRN ---
Procedure Note - Anesthesia - Invasive Line Right Central Line Time Out Performed: Yes (0726) Date of Procedure: 11/18/24 Time of Procedure: 07:27 Location of Patient: Phase I Preparation: Sterile Prep, Sterile Dressing Central Line Location: Internal Jugular (right ij cordis) Ultrasound Used: Yes Purpose - Visualization and Identification of Vasculature: Yes Needle Guage: 18g angio Image Stored and Saved: Yes Narrative: Invasive line placement per sterile protocol utilized. Anesthesia note Procedure: Right internal jugular central venous catheter insertion: 8.5-Moroccan Cordis Sterile protocol followed. Right neck prepped. Ultrasound used. Lidocaine 1% used. Using ultrasound local anesthetic was instilled site over right Internal Jugular vein. Angiocath was used to gain access via ultrasound. Once free flow non-pulsatile blood flow was confirmed, 12 inch extension tubing was then placed on Angiocath. Once central venous pressure was confirmed, J-wire was then placed through Angiocath. Angiocath was then withdrawn. Local was instilled at J-wire site. Small skin balbina was then made with provided sterile scalpel. 8.5- [place]oc[place] Cordis was then inserted over the wire while maintaining control of wire at all times. Uneventful insertion with dilation. Free flow nonpulsatile blood flow through Cordis. Hooked up to IV tubing. Secured with suture. Dressings applied. Drapes Removed. Attempts x1.
--- NOTE | 2024-11-18 10:45 | P.ANPRN ---
Procedure Note - Anesthesia - Invasive Line Right [place] Time Out Performed: Yes (07) Date of Procedure: 11/18/24 Time of Procedure: 07:37 Location of Patient: Phase I Preparation: Sterile Prep, Sterile Dressing [place] Line Location: Internal Jugular (right IJ) Purpose - Visualization and Identification of Vasculature: No Image Stored and Saved: No Narrative: Invasive line placement per sterile protocol utilized. Anesthesia note Procedure right [place] catheter placed through right internal jugular central venous catheter Sterile protocol maintained from previous procedure. [place] catheter sterilely placed in sheath and flushed prior to insertion. After advancing 15 cm [place] catheter was then slowly inserted with balloon up. Advanced through CVP, RV to PA waveform. [place] catheter wedged around 51 cm. Balloon down. Catheter withdrawn 5 cm. . No wedge. Proximal and distal sites locked on sheath. Attempts x1. Sterile drapes removed and dressings applied.
--- NOTE | 2024-11-18 10:46 | P.ANPRN ---
Procedure Note - Anesthesia - SWAPNA Intraop Pre Bypass SWAPNA Intraop - Anesthesia Indication: Coronary artery disease Date of Procedure: 11/18/24 Pre-operative Diagnosis: Coronary artery disease, off-pump CABG Post-operative Diagnosis: Same Surgeon: Marshall Gonzales Left Ventricle: Within normal limits Ejection Fraction: Normal Regional Wall Motion Abnormalities: None Left Ventricle Hypertrophy: No R. Ventricle Function: Normal Anatomy: Trileaflet Aortic Stenosis: None Aortic Regurgitation: None Mitral Stenosis: None Mitral Regurgitation: Trace Tricuspid Stenosis: None Tricuspid Regurgitation: Trace Pulmonic Stenosis: None Pulmonic Regurgitation: None R. Atrial Dilation: No R. Atrial PFO: No L. Atrial Dilation: No Aortic Dissection: No Aortic Calcification: None Plural Effusion: None
[2024-11-18 11:51] LABS: ABG Base Excess -1.9 mmol/L; ABG Glucose Whole Blood 143 mg/dL (75-99); ABG HCO3 23 mmol/L (21-25); ABG Hematocrit 37 % (34.0-46.0); ABG Ionized Calcium 4.5 mg/dL (4.5-5.3); ABG PCO2 40 mmHg (35-45); ABG PH 7.37 (7.35-7.45); ABG PO2 173 mmHg (83-108); ABG Sodium Whole Blood 142 mmol/L (135-146); ABG TCO2 21 mmol/L (19-24); Allen Test Performed? Yes
[2024-11-18 12:35] LABS: ABG Base Excess -2.3 mmol/L; ABG Glucose Whole Blood 131 mg/dL (75-99); ABG HCO3 23 mmol/L (21-25); ABG Hematocrit 35 % (34.0-46.0); ABG Ionized Calcium 4.4 mg/dL (4.5-5.3); ABG Oxygen Saturation 98.8 % (94-97); ABG PCO2 40 mmHg (35-45); ABG PH 7.37 (7.35-7.45); ABG PO2 178 mmHg (83-108); ABG Potassium Whole Blood 3.9 mmol/L (3.4-4.5); ABG Sodium Whole Blood 142 mmol/L (135-146); ABG TCO2 21 mmol/L (19-24); Allen Test Performed? Yes
[2024-11-18 13:05] LABS: ABG Lactic Acid Whole Blood 2.2 mmol/L (0.5-1.6)
[2024-11-18 13:06] LABS: ABG Lactic Acid Whole Blood 2.4 mmol/L (0.5-1.6)
[2024-11-18 13:09] LABS: ABG Glucose Whole Blood 119 mg/dL (75-99); ABG HCO3 23 mmol/L (21-25); ABG Hematocrit 31 % (34.0-46.0); ABG Ionized Calcium 4.3 mg/dL (4.5-5.3); ABG Oxygen Saturation 98.2 % (94-97); ABG PCO2 42 mmHg (35-45); ABG PH 7.34 (7.35-7.45); ABG PO2 110 mmHg (83-108); ABG Potassium Whole Blood 3.7 mmol/L (3.4-4.5); ABG Sodium Whole Blood 142 mmol/L (135-146); ABG TCO2 21 mmol/L (19-24); Allen Test Performed? Yes
[2024-11-18 13:35] LABS: ABG Base Excess -1.1 mmol/L; ABG Glucose Whole Blood 124 mg/dL (75-99); ABG HCO3 24 mmol/L (21-25); ABG Hematocrit 32 % (34.0-46.0); ABG Ionized Calcium 4.2 mg/dL (4.5-5.3); ABG Oxygen Saturation 98.7 % (94-97); ABG PCO2 39 mmHg (35-45); ABG PH 7.39 (7.35-7.45); ABG PO2 122 mmHg (83-108); ABG Potassium Whole Blood 3.9 mmol/L (3.4-4.5); ABG Sodium Whole Blood 142 mmol/L (135-146); ABG TCO2 22 mmol/L (19-24); Allen Test Performed? Yes
[2024-11-18] MEDS ORDERED: ONDANSETRON 4 MG/2 ML VIAL IVP PRN (14:23)
[2024-11-18] MEDS ORDERED: hydrALAZINE HCL 20 MG/ML 1 ML VIAL IVP PRN (14:23)
[2024-11-18] MEDS ORDERED: IPRATROPIUM-ALBUTEROL 3 ML NEB INHALATION PRN (14:23)
[2024-11-18] MEDS ORDERED: Magnesium Replacement Protocol 1 EACH MISC MISCELLANE PRN (14:23)
[2024-11-18] MEDS ORDERED: DEXTROSE 50% SYRINGE 50 ML IVP PRN ×2 (14:23)
[2024-11-18] MEDS ORDERED: ALBUMIN HUMAN 5% 250 ML in EMPTY BAG 1 BAG IVPB PRN (14:23)
[2024-11-18] MEDS ORDERED: BENZOCAINE/MENTHOL LOZENG 1 EACH LOZENGE MUCOUS MEM PRN (14:23)
[2024-11-18] MEDS ORDERED: Phosphorus Replacement Protoco 1 EACH MISC MISCELLANE PRN (14:23)
[2024-11-18] MEDS ORDERED: Potassium Replacement Protocol 1 EACH MISC MISCELLANE PRN (14:23)
--- NOTE | 2024-11-18 14:25 | P.OP ---
Date of Procedure: 11/18/24 Preoperative Diagnosis: Coronary artery disease Postoperative Diagnosis: Same Procedure(s) Performed: Off-pump CABG x 3 with JESSICA to LAD, DUARTE to obtuse marginal and left radial artery graft from the ascending aorta to the posterior lateral branch of the r ight coronary artery. Also endovascular harvest of the left radial artery and ligation of the left atrial appendage with a 40 mm AtriCure clip. Implants: 40 mm AtriCure clip Anesthesia: GETA Surgeon: Marshall Gonzales Estimated Blood Loss (ml): 500 Pathology: none sent Condition: stable Disposition: ICU Indications for Procedure: 49-year-old male presents with anginal symptomatology. Found to have left main and right coronary artery stenoses. Recommended to undergo coronary bypass surgery. Scheduled electively. He had an infected tooth that was removed the day prior to surgery. Dental clearance was obtained. Operative Findings: Left ventricular function and valvular function were normal by SWAPNA. Conduits were excellent. Left-sided targets were good. Right coronary artery was heavily calcified. It trifurcated in all 3 branches had proximal calcification. The largest branch was the posterior lateral branch. The PDA and third branch were all very small.-year-old excellent grafts were obtained. Cardiac output and index were improved at the end of the case from preoperatively. Ventricular and valvular function remained normal by SWAPNA. Description of Procedure: Patient was brought to the operating room and placed supine on the papal. General anesthesia was induced. SWAPNA probe was placed. Anterior torso and bilateral lower extremities and left upper extremity were sterilely prepped and draped in standard fashion. Left radial artery was harvested with endovascular technique. On completion of the harvest the arm wound was closed with layers of Vicryl suture and tucked at the side. Radial artery was then prepared on the back table. Simultaneous sternotomy was performed. Left hemisternum was retracted upwards and the left internal mammary artery was harvested on a vascularized pedicle, left intact and its origin from the subclavian and divided distally. Mammary artery harvest was quite challenging but an excellent conduit was obtained. Left pleural space was drained with a 32 Estonian chest tube. Once the left arm was tucked at the side, the right internal mammary artery was harvested on a vascularized pedicle, left intact on its origin from the subclavian and divided distally. It was also very challenging to harvest but was an excellent conduit. The right pleural space was also drained with a 32 Estonian chest tube. Standard sternal retractor was placed. The patient was systemically heparinized. ACT's were maintained greater than 250 during grafting. Pericardium was opened in the midline and the heart was exposed with pericardial sutures. The JESSICA was tunneled through the thymic fat pad above the superior vena cava into the pericardium at the uppermost reflection of the pericardium just to the right of the ascending aorta. It was brought across the upper portion of the ascending aorta, across the pulmonary artery and down onto the anterior wall of the heart. It was prepared in standard fashion. Left atrial appendage was exposed and a 40 mm AtriCure clip was placed on the base of the left atrial appendage. Proximal LAD was stabilized and it was opened and blood flow controlled with a 2 mm flow-through. It was a 2.5 mm vessel. End-to-side anastomosis between the JESSICA and the LAD was performed with running 8-0 Prolene suture. On completion of the anastomosis, flow through was removed effectively probing the proximal and distal portion of the anastomosis. Suture was tied with good result and hemostasis. Inflow of the DUARTE to the LAD was opened. The gillespie filled well and the graft lay well. The pedicle of the graft was tacked surrounding epicardium with 6-0 silk sutures. Next the DUARTE was tunneled into the pleural space on the left side above the phrenic nerve. The lateral wall of the heart was exposed and the major marginal branch was stabilized. End of the DUARTE was prepared appropriately. Major marginal was opened and blood flow controlled with a 2 mm flow-through. End-to-side anastomosis was performed between the DUARTE and the obtuse marginal with running 8-0 Prolene suture. On completion the anastomosis, the flow through was removed effectively probing the proximal distal portion of the anastomosis. Suture was tied with good result and hemostasis. Inflow was opened. Graft was noted to lay well. The gillespie filled well. Next the inferior wall of the heart was exposed. Distal vessels were examined. The best target was the posterior lateral branch. This was stabilized and opened proximally. There was heavy calcification more proximal to where we opened. Distally it was a good vessel. Blood flow was controlled with a 1.5 mm flow-through. Radial artery was anastomosed in end-to-side fashion with running 7-0 Prolene suture. On c ompletion the anastomosis, the flow through was removed effectively probing the proximal distal portion of the anastomosis. Suture was tied with good resultant hemostasis. Radial was brought around the right side of the heart and the heart was lowered into anatomic position. Radial was of adequate length to reach the mid ascending aorta. The end of the radial artery was appropriately prepared and backbleeding controlled with a bulldog clamp. Heartstring device was deployed in the mid ascending aorta to the right of midline. Proximal anastomosis was constructed with running 5-0 Prolene suture. On completion of the anastomosis the heartstring device was removed. Inflow was open. The graft was noted to lay well. Good hemostasis was obtained throughout. Heparin was reversed with protamine. Chest was irrigated with antibiotic solution. The mediastinum was drained with a 36 Estonian chest tube. After assuring good hemostasis and good hemodynamics, sternum was closed with 8 sternal wires. The fascia was closed with 0 Ethibond suture. Subcutaneous and subcuticular layers were closed with layers of Vicryl suture. Dry sterile dressings were applied and the patient was transferred to the ICU in stable condition.
[2024-11-18 14:28] LABS: Glucose,Whole Blood 119 mg/dL (70-110)
[2024-11-18 14:34] LABS: Basophils # (A) 0.03 10*3/uL (0.00-0.10); Basophils % (A) 0.3 %; Eosinophils # (A) 0.06 10*3/uL (0.04-0.35); Eosinophils % (A) 0.5 %; HCT 31.1 % (39.6-50.0); Lymphocytes # (A) 1.54 10*3/uL (0.90-5.00); Lymphocytes % (A) 13.1 %; MCH 31.6 pg (27.0-32.0); MCHC 35.4 g/dL (32.0-37.0); MCV 89.4 fL (80.0-97.0); Mean Platelet Volume 11.4 fL (9.5-12.2); Monocytes # (A) 0.76 10*3/uL (0.20-1.00); Monocytes % (A) 6.4 %; Neutrophils # (A) 9.34 10*3/uL (1.80-7.70); Neutrophils % (A) 79.1 %; Platelet Count 150 10*3/uL (140-440); RBC 3.48 10*6/uL (4.40-5.60); RDW 12.5 % (11.5-14.5)
[2024-11-18] MEDS: NITROGLYCERIN-D5W PMX 50 MG in DEXTROSE/WATER 1 250ML.BAG IV SCH (14:35)
[2024-11-18] MEDS: CLEVIDIPINE BUTYRATE 25 MG in EMPTY BAG 1 BAG IV SCH (14:35)
[2024-11-18 14:40] LABS: Ionized Calcium 4.4 mg/dL (4.5-5.3)
--- NOTE | 2024-11-18 14:44 | XR ---
EXAMINATION TYPE: XR chest 1V portable DATE OF EXAM: 11/18/2024 2:39 PM COMPARISON: Chest radiographs from 11/18/2024 TECHNIQUE: XR chest 1V portable Portable AP radiograph of the chest. CLINICAL INDICATION:Male, 49 years old with history of Post Operative Cardiac Surgery; FINDINGS: Lungs/Pleura: There is no evidence of pleural effusion, focal consolidation, or pneumothorax. Bibasi lar linear atelectasis. Pulmonary vascularity: Unremarkable. Heart/mediastinum: Cardiomediastinal silhouette is enlarged and stable. Left atrial appendage occlusi on devices present. Musculoskeletal: No acute osseous pathology. Midline sternotomy wires are noted. Cervical fusion hard garay demonstrated. Other findings: None Lines/Tubes: Endotracheal tube with distal tip 5.2 cm above the geoff Nasogastric tube with its distal tip and side-port projecting under the diaphragm. Right IJ [place] catheter with distal tip in the region of the main pulmonary artery. Bilateral thoracotomy tubes with both directed towards the upper lungs. Mediastinal drainage catheter from inferior approach demonstrate a period IMPRESSION: 1. Post cardiac surgical change with bibasilar linear atelectasis. No discrete pneumothorax. 2. Support lines and tubes as described above. [facility], , 11/18/2024 2:42 PM
[2024-11-18 14:46] LABS: INR 1.2 (<1.2); Partial Thromboplastin Time 25.3 sec (22.0-30.0); Prothrombin Time 12.5 sec (10.0-12.5)
[2024-11-18 14:50] LABS: ALT 29 U/L (4-49); AST 24 U/L (17-59); African American GFR (CKD) >90 (>60 ml/min/1.73 sqM); Albumin 3.6 g/dL (3.5-5.0); Alkaline Phosphatase 47 U/L (38-126); Anion Gap 9 mmol/L; Blood Urea Nitrogen 15 mg/dL (9-20); Calcium 8.2 mg/dL (8.4-10.2); Carbon Dioxide 23 mmol/L (22-30); Chloride 108 mmol/L (98-107); Glucose 107 mg/dL (74-99); Magnesium 2.1 mg/dL (1.6-2.3); Non-African American GFR(CKD) >90 (>60 ml/min/1.73 sqM); Potassium 4.1 mmol/L (3.5-5.1); Sodium 140 mmol/L (137-145); Total Bilirubin 0.9 mg/dL (0.2-1.3); Total Protein 5.5 g/dL (6.3-8.2)
[2024-11-18 14:55] LABS: ABG HCO3 24 mmol/L (21-25); ABG Oxygen Saturation 98.8 % (94-97); ABG PCO2 45 mmHg (35-45); ABG PH 7.34 (7.35-7.45); ABG PO2 114 mmHg (83-108); ABG TCO2 25 mmol/L (19-24)
[2024-11-18 14:58] LABS: Allen Test Performed? no
[2024-11-18] MEDS: IPRATROPIUM-ALBUTEROL 3 ML NEB INHALATION SCH (15:16)
[2024-11-18 15:36] LABS: Glucose,Whole Blood 153 mg/dL (70-110)
[2024-11-18] MEDS: INSULIN REGULAR 100 UNIT in SODIUM CHLORIDE 0.9% 100 ML IV SCH (15:52)
[2024-11-18] MEDS: DEXMEDETOMIDINE/0.9% NACL(PMX) 400 MCG in EMPTY BAG 1 BAG IV SCH (15:55)
[2024-11-18] MEDS: ceFAZolin 2 GM in DEXTROSE 5% IN WATER 50 ML IVPB SCH (16:13)
[2024-11-18] MEDS: SODIUM CHLORIDE 0.9% 1,000 ML IV SCH (16:13)
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
[2024-11-18] MEDS: HEPARIN SODIUM,PORCINE 5,000 UNIT/ML 1 ML VIAL SQ SCH (16:35)
[2024-11-18] MEDS: ACETAMINOPHEN IV (For NPO) 1,000 MG in EMPTY BAG 1 BAG IVPB SCH (16:44)
[2024-11-18 16:49] LABS: Glucose,Whole Blood 174 mg/dL (70-110)
[2024-11-18 17:09] LABS: ABG Base Excess -2.9 mmol/L; ABG HCO3 22 mmol/L (21-25); ABG Oxygen Saturation 94.7 % (94-97); ABG PCO2 38 mmHg (35-45); ABG PH 7.37 (7.35-7.45); ABG PO2 68 mmHg (83-108); ABG TCO2 23 mmol/L (19-24)
[2024-11-18 17:11] LABS: Allen Test Performed? no
[2024-11-18] MEDS: CALCIUM GLUCONATE IN NACL 2 GM in SALINE 1 100ML.BAG IVPB PRN (17:22)
[2024-11-18 17:32] LABS: Glucose,Whole Blood 176 mg/dL (70-110)
[2024-11-18 17:42] LABS: Basophils # (A) 0.04 10*3/uL (0.00-0.10); Basophils % (A) 0.2 %; Eosinophils # (A) 0.01 10*3/uL (0.04-0.35); Eosinophils % (A) 0.1 %; HCT 33.4 % (39.6-50.0); HGB 11.9 g/dL (13.0-17.0); Lymphocytes # (A) 0.99 10*3/uL (0.90-5.00); Lymphocytes % (A) 6.1 %; MCH 32.1 pg (27.0-32.0); MCHC 35.6 g/dL (32.0-37.0); Mean Platelet Volume 11.7 fL (9.5-12.2); Monocytes # (A) 1.24 10*3/uL (0.20-1.00); Monocytes % (A) 7.6 %; Neutrophils # (A) 13.87 10*3/uL (1.80-7.70); Neutrophils % (A) 85.6 %; Platelet Count 192 10*3/uL (140-440); RBC 3.71 10*6/uL (4.40-5.60); RDW 12.6 % (11.5-14.5); WBC 16.22 10*3/uL (4.50-10.00)
[2024-11-18 18:54] LABS: Glucose,Whole Blood 143 mg/dL (70-110)
[2024-11-18 19:52] LABS: Glucose,Whole Blood 126 mg/dL (70-110)
[2024-11-18 20:00] LABS: Basophils # (A) 0.03 10*3/uL (0.00-0.10); Basophils % (A) 0.2 %; Eosinophils # (A) 0.01 10*3/uL (0.04-0.35); Eosinophils % (A) 0.1 %; HGB 12.8 g/dL (13.0-17.0); Lymphocytes # (A) 0.89 10*3/uL (0.90-5.00); MCHC 35.6 g/dL (32.0-37.0); Mean Platelet Volume 11.9 fL (9.5-12.2); Monocytes # (A) 1.22 10*3/uL (0.20-1.00); Monocytes % (A) 6.8 %; Neutrophils # (A) 15.66 10*3/uL (1.80-7.70); Neutrophils % (A) 87.5 %; Platelet Count 197 10*3/uL (140-440); RDW 12.5 % (11.5-14.5); WBC 17.89 10*3/uL (4.50-10.00)
[2024-11-18 21:08] LABS: Glucose,Whole Blood 139 mg/dL (70-110)
[2024-11-18] MEDS: METOCLOPRAMIDE 5 MG/ML 2 ML VIAL IVP PRN (21:57)
[2024-11-18] MEDS: METOPROLOL TARTRATE 25 MG TAB PO STA (21:57)
[2024-11-18 23:20] LABS: Glucose,Whole Blood 148 mg/dL (70-110)
[2024-11-19] MEDS: METOPROLOL TARTRATE 25 MG TAB PO STA (00:03)
[2024-11-19] MEDS ORDERED: ACETAMINOPHEN TAB 500 MG TAB PO PRN (00:05)
[2024-11-19 02:19] LABS: Glucose,Whole Blood 144 mg/dL (70-110)
[2024-11-19 03:14] LABS: Glucose,Whole Blood 139 mg/dL (70-110)
[2024-11-19 04:27] LABS: ABG Lactic Acid Whole Blood 2.2 mmol/L (0.5-1.6)
[2024-11-19 04:27] LABS: Glucose,Whole Blood 134 mg/dL (70-110)
[2024-11-19 04:55] LABS: Basophils % (A) 0.2 %; Eosinophils % (A) 0.1 %; HCT 37.5 % (39.6-50.0); HGB 13.4 g/dL (13.0-17.0); Lymphocytes % (A) 8.7 %; MCHC 35.7 g/dL (32.0-37.0); MCV 89.5 fL (80.0-97.0); Monocytes % (A) 8.6 %; Neutrophils # (A) 16.11 10*3/uL (1.80-7.70); Neutrophils % (A) 81.9 %; Platelet Count 229 10*3/uL (140-440); RBC 4.19 10*6/uL (4.40-5.60); RDW 12.8 % (11.5-14.5); WBC 19.64 10*3/uL (4.50-10.00)
[2024-11-19 04:56] LABS: Basophils # (A) 0.04 10*3/uL (0.00-0.10); Eosinophils # (A) 0.01 10*3/uL (0.04-0.35); Monocytes # (A) 1.69 10*3/uL (0.20-1.00)
[2024-11-19 05:00] LABS: Ionized Calcium 4.9 mg/dL (4.5-5.3)
[2024-11-19 05:13] LABS: ALT 31 U/L (4-49); AST 31 U/L (17-59); African American GFR (CKD) >90 (>60 ml/min/1.73 sqM); Albumin 4.1 g/dL (3.5-5.0); Alkaline Phosphatase 60 U/L (38-126); Anion Gap 8 mmol/L; Blood Urea Nitrogen 11 mg/dL (9-20); Calcium 9.1 mg/dL (8.4-10.2); Carbon Dioxide 23 mmol/L (22-30); Chloride 103 mmol/L (98-107); Glucose 124 mg/dL (74-99); Non-African American GFR(CKD) >90 (>60 ml/min/1.73 sqM); Potassium 3.8 mmol/L (3.5-5.1); Sodium 134 mmol/L (137-145); Total Bilirubin 1.1 mg/dL (0.2-1.3); Total Protein 6.2 g/dL (6.3-8.2)
[2024-11-19] MEDS ORDERED: Potassium Replacement Protocol 1 EACH MISC MISCELLANE PRN (05:31)
[2024-11-19] MEDS: POTASSIUM CHLORIDE ER 20 MEQ TAB.ER PO SCH (05:39)
[2024-11-19 06:16] LABS: Glucose,Whole Blood 155 mg/dL (70-110)
[2024-11-19 06:51] LABS: Glucose,Whole Blood 159 mg/dL (70-110)
--- NOTE | 2024-11-19 07:05 | XR ---
EXAMINATION TYPE: XR chest 1V portable DATE OF EXAM: 11/19/2024 COMPARISON: 11/18/2024 CLINICAL INDICATION: Male, 49 years old with history of Post Operative Cardiac Surgery; TECHNIQUE: Single frontal view of the chest is obtained. FINDINGS: There is no change in the position of the [place] catheter, the bilateral chest tubes, or the mediastinal tube. There has been interval removal of the ET tube and NG tube. There is minimal interstitial opacity indicating minimal atelectasis in the left lung base. There is no large pleural effusion or pneumothorax. There is no airspace consolidation. IMPRESSION: 1. Interval removal of the ET tube and NG tube. 2. No change in the mediastinal tube and chest tubes. 3. No airspace consolidation, pneumothorax or large pleural effusion. 4. No interval change compared to previous. [facility], , 11/19/2024 7:03 AM
[2024-11-19] MEDS: PANTOPRAZOLE 40 MG/10 ML VIAL IVP SCH (08:03)
[2024-11-19] MEDS: KETOROLAC 15 MG/ML 1 ML VIAL IVP SCH (08:03)
[2024-11-19] MEDS: ASPIRIN 325 MG TAB PO SCH (08:04)
[2024-11-19] MEDS: CLOPIDOGREL 75 MG TAB PO SCH (08:04)
[2024-11-19 08:21] LABS: Glucose,Whole Blood 136 mg/dL (70-110)
[2024-11-19] MEDS: METOPROLOL TARTRATE 50 MG TAB PO SCH (08:22)
[2024-11-19] MEDS: AMOXIC-POT CLAV 875-125MG 1 EACH TAB PO SCH (08:22)
[2024-11-19] MEDS: amLODIPine 5 MG TAB PO SCH (08:22)
[2024-11-19] MEDS: ATORVASTATIN 40 MG TAB PO SCH (08:25)
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
[2024-11-19] MEDS ORDERED: METOPROLOL TARTRATE 25 MG TAB PO SCH (09:00)
[2024-11-19] MEDS ORDERED: bisacodyL 10 MG SUPP RECTAL PRN (09:00)
[2024-11-19] MEDS ORDERED: METOPROLOL TARTRATE 12.5 MG TAB PO SCH (09:00)
[2024-11-19] MEDS: IPRATROPIUM-ALBUTEROL 3 ML NEB INHALATION SCH (09:19)
[2024-11-19 09:38] LABS: Glucose,Whole Blood 164 mg/dL (70-110)
--- NOTE | 2024-11-19 10:25 | P.PN ---
Subjective Progress Note Date: 11/19/24 49 year old M with PMH of CAD, HTN, HLD, chronic neck pain with h/o spinal cord surgery presents to [facility] for elective surgery. He underwent off-pump CABG x [address] Gonzales[address] [facility] consulted for medical management of the patient. 11/18 Patient was seen and examined. Intubated. Vent settings include rate 18, tidal volume 500, FiO2 40%, PEEP 10. Sedation includes Propofol at 40 mcg/kg/min. IVF includes NS at 50 cc/hr. Insulin drip at 2 units/hour. Nitroglycerin drip at 5 mcg/min. Clevidipine drip at 8 mg/hr. CBC, Coag panel, CMP significant for WBC 11.8, RBC 3.48, Hg 11, Hct 31.1, INR 1.2, Cl 108, glu 107, Ca 8.2, total protein 5.6. Ionized Ca 4.4. ABG pH 7.34, pCO2 45, pO2 114 on FiO2 60. CXR shows post surgical changes with bibasilar atelectasis. 11/19 Patient was seen and examined. Extubated on 11/18. Currently 94% on RA. IVF includes NS at 50 cc/hr. Insulin drip at 4 units/hr. Clevidipine and Nitroglycerine drip discontinued and patient re-started on Amlodipine. CBC, CMP significant for WBC 19.64, RBC 4.19, Hct 37.5, Na 134, glu 124, total protein 6.2. Mag 2. CXR shows post surgical changes with no acute abnormality. General: No acute distress Derm: warm, dry Head: atraumatic, normocephalic, symmetric, R JI Eyes: EOMI, no lid lag, anicteric sclera Mouth: no lip lesion, mucus membranes moist Cardiovascular: S1S2 reg, no murmur, heart hugger in place Lungs: Coarse BS bilaterally. L + R + mediastinal chest tube intact Ext: no gross muscle atrophy, no edema, no contractures Neuro: No focal neurologic deficits Psych: Alert and oriented + [place] Based on my assessment of this patient, this patient meets a high complexity level of care. SIRS: Tmax 100F. No signs of active infection. Leukocytosis possibly reactive. Monitor fever profile. Acute blood loss anemia: Expected result of surgery. Daily CBC. Transfuse if Hg < 7. CAD status post off-pump CABG x [address] Gonzales on 11/18: ASA 325 mg PO QD. Lipitor 40 mg PO QD. Plavix 75 mg PO QD. Metoprolol 50 mg PO BID. Cardiology and CT surgery on board. Dental abscess: Resume Augmentin 875-125 mg PO BID. Pre-DM: A1c 6.4. Continue insulin drip for 48H post operatively. Accuchecks Q1H. Hypoglycemic precautions. Hypertension: Metoprolol as above. Amlodipine 5 mg PO QD. Hydralazine 10 mg IV Q1H PRN. Monitor vitals and adjust medications if necessary. Dyslipidemia: Lipitor as above. Chronic neck pain: Tramadol 50 mg PO Q6Hm Robaxin 750 mg PO Q6H PRN. CODE STATUS: FULL CODE DVT Prophylaxis: Heparin SQ GI Prophylaxis: Protonix IV Designated medical POA if patient is not able to make medical decisions for themselves: I have reviewed the following building energy consultant notes: CT surgery note. I have reviewed the results of the following tests: CBC, BMP, Mag. I have ordered the following tests: I have discussed the care of this patient with the following independent historian: I have independently interpreted the following test below: CXR I have discussed the management of this patient with the following physician: Justin Mendoza NP Objective - Vital Signs Vital signs: Vital Signs Temp 99.7 F H 11/19/24 04:00 Pulse 87 11/19/24 07:00 Resp 22 11/19/24 07:00 BP 125/82 11/19/24 06:00 Pulse Ox 94 L 11/19/24 07:00 FiO2 40 11/18/24 16:39 Intake & Output 11/18/24 11/19/24 11/19/24 18:59 06:59 18:59 Intake Total 233.138 9815.240 10.272 Output Total 2180 3046 100 Balance -1620.842 -1819.760 -89.728 Weight 112.7 kg Intake: IV 276 216 3 .9NS Cardiac Output 60 80 .9NS Pressure Bag 12 36 3 ACETAMINOPHEN IV (For NPO 100 100 ) 1,000 mg In Empty Bag 1 bag @ 400 mls/hr IVPB Q6HR [facility] Rx#:[id number] Calcium Gluconate in NaCl 100 2 gm In Saline 1 100ml. bag @ 100 mls/hr IVPB ONCE PRN Rx#:[id number] Intake, IV Titration 283.158 815.240 7.272 Amount Calcium Gluconate in NaCl 80 2 gm In Saline 1 100ml. bag @ 100 mls/hr IVPB ONCE PRN Rx#:[id number] Clevidipine Butyrate 25 30.168 69.832 mg In Empty Bag 1 bag @ 1 MG/HR 2 mls/hr IV .Q24H [facility] Rx#:[id number] Dexmedetomidine/0.9% NaCl 13.085 (Pmx) 400 mcg In Empty Bag 1 bag @ Titrate IV . Q0M [facility] Rx#:[id number] Insulin Regular 100 unit 4.519 45.408 7.272 In Sodium Chloride 0.9% 100 ml @ Per Protocol IV .Q0M [facility] Rx#:[id number] Sodium Chloride 0.9% 1, 100 600 000 ml @ 50 mls/hr IV . Q20H [facility] Rx#:[id number] ceFAZolin 2 gm In 100 Dextrose 5% in Water 50 ml @ 100 mls/hr IVPB Q8HR [facility] Rx#:[id number] propofoL 1,000 mg In 55.386 Empty Bag 1 bag @ Titrate IV .Q0M [facility] Rx#: [id number] Oral 195 Output: Chest Tube Drainage [address] 120 328 Mediastial Chest Tube [address] 130 158 Drainage 30 Left forearm 30 Urine 1390 2210 100 Estimated Blood Loss 350 Other: Voiding Method Indwelling Catheter Indwelling Catheter ABP, PAP, CO, CI - Last Documented Arterial Blood Pressure 132/62 Pulmonary Artery Pressure 22/8 Cardiac Output 7.6 Cardiac Index 3.2 - Labs CBC & Chem 7: 11/19/24 04:30 11/19/24 04:30 Labs: Abnormal Lab Results - Last 24 Hours (Table) 11/09/24 11/18/24 11/18/24 Range/Units 14:00 08:00 08:00 WBC (4.50-10.00) 10*3/uL RBC (4.40-5.60) 10*6/uL Hgb (13.0-17.0) g/dL Hct (39.6-50.0) % MCH (27.0-32.0) pg Immature Gran # (0.00-0.04) 10*3/uL Neutrophils # (1.80-7.70) 10*3/uL Lymphocytes # (0.90-5.00) 10*3/uL Monocytes # (0.20-1.00) 10*3/uL Eosinophils # (0.04-0.35) 10*3/uL INR (<1.2) ABG pH 7.34 L (7.35-7.45) ABG pO2 110 H 122 H (83-108) mmHg ABG Total CO2 (19-24) mmol/L ABG O2 Saturation 98.2 H 98.7 H (94-97) % ABG Hematocrit 31 L 32 L (34.0-46.0) % ABG Ionized Calcium 4.3 L 4.2 L (4.5-5.3) mg/dL ABG Glucose 119 H 124 H (75-99) mg/dL ABG Lactic Acid 2.0 H 2.2 H* (0.5-1.6) mmol/L Hemoglobin 10.2 L 10.4 L (13.0-17.5) gm/dL Sodium (137-145) mmol/L Chloride (98-107) mmol/L Glucose (74-99) mg/dL POC Glucose (mg/dL) (70-110) mg/dL Calcium (8.4-10.2) mg/dL Ionized Calcium Jen (4.5-5.3) mg/dL Total Protein (6.3-8.2) g/dL Arterial Blood Glucose 119 H 124 H (75-99) mg/dL Crossmatch See Detail 11/18/24 11/18/24 11/18/24 Range/Units 08:39 11:50 12:34 WBC (4.50-10.00) 10*3/uL RBC (4.40-5.60) 10*6/uL Hgb (13.0-17.0) g/dL Hct (39.6-50.0) % MCH (27.0-32.0) pg Immature Gran # (0.00-0.04) 10*3/uL Neutrophils # (1.80-7.70) 10*3/uL Lymphocytes # (0.90-5.00) 10*3/uL Monocytes # (0.20-1.00) 10*3/uL Eosinophils # (0.04-0.35) 10*3/uL INR (<1.2) ABG pH (7.35-7.45) ABG pO2 157 H 173 H 178 H (83-108) mmHg ABG Total CO2 (19-24) mmol/L ABG O2 Saturation 98.7 H 99.0 H 98.8 H (94-97) % ABG Hematocrit (34.0-46.0) % ABG Ionized Calcium 4.4 L (4.5-5.3) mg/dL ABG Glucose 121 H 143 H 131 H (75-99) mg/dL ABG Lactic Acid 2.2 H* 2.4 H* (0.5-1.6) mmol/L Hemoglobin 12.4 L 12.1 L 11.4 L (13.0-17.5) gm/dL Sodium (137-145) mmol/L Chloride (98-107) mmol/L Glucose (74-99) mg/dL POC Glucose (mg/dL) (70-110) mg/dL Calcium (8.4-10.2) mg/dL Ionized Calcium Jen (4.5-5.3) mg/dL Total Protein (6.3-8.2) g/dL Arterial Blood Glucose 121 H 143 H 131 H (75-99) mg/dL Crossmatch 11/18/24 11/18/24 11/18/24 Range/Units 14:25 14:26 14:26 WBC 11.80 H (4.50-10.00) 10*3/uL RBC 3.48 L (4.40-5.60) 10*6/uL Hgb 11.0 L (13.0-17.0) g/dL Hct 31.1 L (39.6-50.0) % MCH (27.0-32.0) pg Immature Gran # 0.07 H (0.00-0.04) 10*3/uL Neutrophils # 9.34 H (1.80-7.70) 10*3/uL Lymphocytes # (0.90-5.00) 10*3/uL Monocytes # (0.20-1.00) 10*3/uL Eosinophils # (0.04-0.35) 10*3/uL INR 1.2 H (<1.2) ABG pH (7.35-7.45) ABG pO2 (83-108) mmHg ABG Total CO2 (19-24) mmol/L ABG O2 Saturation (94-97) % ABG Hematocrit (34.0-46.0) % ABG Ionized Calcium (4.5-5.3) mg/dL ABG Glucose (75-99) mg/dL ABG Lactic Acid (0.5-1.6) mmol/L Hemoglobin (13.0-17.5) gm/dL Sodium (137-145) mmol/L Chloride (98-107) mmol/L Glucose (74-99) mg/dL POC Glucose (mg/dL) 119 H (70-110) mg/dL Calcium (8.4-10.2) mg/dL Ionized Calcium Jen (4.5-5.3) mg/dL Total Protein (6.3-8.2) g/dL Arterial Blood Glucose (75-99) mg/dL Crossmatch 11/18/24 11/18/24 11/18/24 Range/Units 14:26 14:53 15:34 WBC (4.50-10.00) 10*3/uL RBC (4.40-5.60) 10*6/uL Hgb (13.0-17.0) g/dL Hct (39.6-50.0) % MCH (27.0-32.0) pg Immature Gran # (0.00-0.04) 10*3/uL Neutrophils # (1.80-7.70) 10*3/uL Lymphocytes # (0.90-5.00) 10*3/uL Monocytes # (0.20-1.00) 10*3/uL Eosinophils # (0.04-0.35) 10*3/uL INR (<1.2) ABG pH 7.34 L (7.35-7.45) ABG pO2 114 H (83-108) mmHg ABG Total CO2 25 H (19-24) mmol/L ABG O2 Saturation 98.8 H (94-97) % ABG Hematocrit (34.0-46.0) % ABG Ionized Calcium (4.5-5.3) mg/dL ABG Glucose (75-99) mg/dL ABG Lactic Acid (0.5-1.6) mmol/L Hemoglobin 12.1 L (13.0-17.5) gm/dL Sodium (137-145) mmol/L Chloride 108 H (98-107) mmol/L Glucose 107 H (74-99) mg/dL POC Glucose (mg/dL) 153 H (70-110) mg/dL Calcium 8.2 L (8.4-10.2) mg/dL Ionized Calcium Jen 4.4 L (4.5-5.3) mg/dL Total Protein 5.5 L (6.3-8.2) g/dL Arterial Blood Glucose (75-99) mg/dL Crossmatch 11/18/24 11/18/24 11/18/24 Range/Units 16:46 16:48 17:27 WBC (4.50-10.00) 10*3/uL RBC (4.40-5.60) 10*6/uL Hgb (13.0-17.0) g/dL Hct (39.6-50.0) % MCH (27.0-32.0) pg Immature Gran # (0.00-0.04) 10*3/uL Neutrophils # (1.80-7.70) 10*3/uL Lymphocytes # (0.90-5.00) 10*3/uL Monocytes # (0.20-1.00) 10*3/uL Eosinophils # (0.04-0.35) 10*3/uL INR (<1.2) ABG pH (7.35-7.45) ABG pO2 68 L (83-108) mmHg ABG Total CO2 (19-24) mmol/L ABG O2 Saturation (94-97) % ABG Hematocrit (34.0-46.0) % ABG Ionized Calcium (4.5-5.3) mg/dL ABG Glucose (75-99) mg/dL ABG Lactic Acid (0.5-1.6) mmol/L Hemoglobin 12.5 L (13.0-17.5) gm/dL Sodium (137-145) mmol/L Chloride (98-107) mmol/L Glucose (74-99) mg/dL POC Glucose (mg/dL) 174 H 176 H (70-110) mg/dL Calcium (8.4-10.2) mg/dL Ionized Calcium Jen (4.5-5.3) mg/dL Total Protein (6.3-8.2) g/dL Arterial Blood Glucose (75-99) mg/dL Crossmatch 11/18/24 11/18/24 11/18/24 Range/Units 17:30 18:51 19:50 WBC 16.22 H 17.89 H (4.50-10.00) 10*3/uL RBC 3.71 L 4.00 L (4.40-5.60) 10*6/uL Hgb 11.9 L 12.8 L (13.0-17.0) g/dL Hct 33.4 L 36.0 L (39.6-50.0) % MCH 32.1 H (27.0-32.0) pg Immature Gran # 0.07 H 0.08 H (0.00-0.04) 10*3/uL Neutrophils # 13.87 H 15.66 H (1.80-7.70) 10*3/uL Lymphocytes # 0.89 L (0.90-5.00) 10*3/uL Monocytes # 1.24 H 1.22 H (0.20-1.00) 10*3/uL Eosinophils # 0.01 L 0.01 L (0.04-0.35) 10*3/uL INR (<1.2) ABG pH (7.35-7.45) ABG pO2 (83-108) mmHg ABG Total CO2 (19-24) mmol/L ABG O2 Saturation (94-97) % ABG Hematocrit (34.0-46.0) % ABG Ionized Calcium (4.5-5.3) mg/dL ABG Glucose (75-99) mg/dL ABG Lactic Acid (0.5-1.6) mmol/L Hemoglobin (13.0-17.5) gm/dL Sodium (137-145) mmol/L Chloride (98-107) mmol/L Glucose (74-99) mg/dL POC Glucose (mg/dL) 143 H (70-110) mg/dL Calcium (8.4-10.2) mg/dL Ionized Calcium Jen (4.5-5.3) mg/dL Total Protein (6.3-8.2) g/dL Arterial Blood Glucose (75-99) mg/dL Crossmatch 11/18/24 11/18/24 11/18/24 Range/Units 19:51 21:07 23:18 WBC (4.50-10.00) 10*3/uL RBC (4.40-5.60) 10*6/uL Hgb (13.0-17.0) g/dL Hct (39.6-50.0) % MCH (27.0-32.0) pg Immature Gran # (0.00-0.04) 10*3/uL Neutrophils # (1.80-7.70) 10*3/uL Lymphocytes # (0.90-5.00) 10*3/uL Monocytes # (0.20-1.00) 10*3/uL Eosinophils # (0.04-0.35) 10*3/uL INR (<1.2) ABG pH (7.35-7.45) ABG pO2 (83-108) mmHg ABG Total CO2 (19-24) mmol/L ABG O2 Saturation (94-97) % ABG Hematocrit (34.0-46.0) % ABG Ionized Calcium (4.5-5.3) mg/dL ABG Glucose (75-99) mg/dL ABG Lactic Acid (0.5-1.6) mmol/L Hemoglobin (13.0-17.5) gm/dL Sodium (137-145) mmol/L Chloride (98-107) mmol/L Glucose (74-99) mg/dL POC Glucose (mg/dL) 126 H 139 H 148 H (70-110) mg/dL Calcium (8.4-10.2) mg/dL Ionized Calcium Jen (4.5-5.3) mg/dL Total Protein (6.3-8.2) g/dL Arterial Blood Glucose (75-99) mg/dL Crossmatch 11/19/24 11/19/24 11/19/24 Range/Units 02:17 03:13 04:24 WBC (4.50-10.00) 10*3/uL RBC (4.40-5.60) 10*6/uL Hgb (13.0-17.0) g/dL Hct (39.6-50.0) % MCH (27.0-32.0) pg Immature Gran # (0.00-0.04) 10*3/uL Neutrophils # (1.80-7.70) 10*3/uL Lymphocytes # (0.90-5.00) 10*3/uL Monocytes # (0.20-1.00) 10*3/uL Eosinophils # (0.04-0.35) 10*3/uL INR (<1.2) ABG pH (7.35-7.45) ABG pO2 (83-108) mmHg ABG Total CO2 (19-24) mmol/L ABG O2 Saturation (94-97) % ABG Hematocrit (34.0-46.0) % ABG Ionized Calcium (4.5-5.3) mg/dL ABG Glucose (75-99) mg/dL ABG Lactic Acid (0.5-1.6) mmol/L Hemoglobin (13.0-17.5) gm/dL Sodium (137-145) mmol/L Chloride (98-107) mmol/L Glucose (74-99) mg/dL POC Glucose (mg/dL) 144 H 139 H 134 H (70-110) mg/dL Calcium (8.4-10.2) mg/dL Ionized Calcium Jen (4.5-5.3) mg/dL Total Protein (6.3-8.2) g/dL Arterial Blood Glucose (75-99) mg/dL Crossmatch 11/19/24 11/19/24 11/19/24 Range/Units 04:30 04:30 06:15 WBC 19.64 H (4.50-10.00) 10*3/uL RBC 4.19 L (4.40-5.60) 10*6/uL Hgb (13.0-17.0) g/dL Hct 37.5 L (39.6-50.0) % MCH (27.0-32.0) pg Immature Gran # 0.09 H (0.00-0.04) 10*3/uL Neutrophils # 16.11 H (1.80-7.70) 10*3/uL Lymphocytes # (0.90-5.00) 10*3/uL Monocytes # 1.69 H (0.20-1.00) 10*3/uL Eosinophils # 0.01 L (0.04-0.35) 10*3/uL INR (<1.2) ABG pH (7.35-7.45) ABG pO2 (83-108) mmHg ABG Total CO2 (19-24) mmol/L ABG O2 Saturation (94-97) % ABG Hematocrit (34.0-46.0) % ABG Ionized Calcium (4.5-5.3) mg/dL ABG Glucose (75-99) mg/dL ABG Lactic Acid (0.5-1.6) mmol/L Hemoglobin (13.0-17.5) gm/dL Sodium 134 L (137-145) mmol/L Chloride (98-107) mmol/L Glucose 124 H (74-99) mg/dL POC Glucose (mg/dL) 155 H (70-110) mg/dL Calcium (8.4-10.2) mg/dL Ionized Calcium Jen (4.5-5.3) mg/dL Total Protein 6.2 L (6.3-8.2) g/dL Arterial Blood Glucose (75-99) mg/dL Crossmatch 11/19/24 11/19/24 Range/Units 06:50 08:19 WBC (4.50-10.00) 10*3/uL RBC (4.40-5.60) 10*6/uL Hgb (13.0-17.0) g/dL Hct (39.6-50.0) % MCH (27.0-32.0) pg Immature Gran # (0.00-0.04) 10*3/uL Neutrophils # (1.80-7.70) 10*3/uL Lymphocytes # (0.90-5.00) 10*3/uL Monocytes # (0.20-1.00) 10*3/uL Eosinophils # (0.04-0.35) 10*3/uL INR (<1.2) ABG pH (7.35-7.45) ABG pO2 (83-108) mmHg ABG Total CO2 (19-24) mmol/L ABG O2 Saturation (94-97) % ABG Hematocrit (34.0-46.0) % ABG Ionized Calcium (4.5-5.3) mg/dL ABG Glucose (75-99) mg/dL ABG Lactic Acid (0.5-1.6) mmol/L Hemoglobin (13.0-17.5) gm/dL Sodium (137-145) mmol/L Chloride (98-107) mmol/L Glucose (74-99) mg/dL POC Glucose (mg/dL) 159 H 136 H (70-110) mg/dL Calcium (8.4-10.2) mg/dL Ionized Calcium Jen (4.5-5.3) mg/dL Total Protein (6.3-8.2) g/dL Arterial Blood Glucose (75-99) mg/dL Crossmatch
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
[2024-11-19 11:05] LABS: Glucose,Whole Blood 122 mg/dL (70-110)
[2024-11-19 12:29] LABS: Glucose,Whole Blood 137 mg/dL (70-110)
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
[2024-11-19 13:43] VITALS: BMI 32.8
[2024-11-19 14:10] LABS: Glucose,Whole Blood 132 mg/dL (70-110)
[2024-11-19 15:43] LABS: Glucose,Whole Blood 132 mg/dL (70-110)
[2024-11-19] MEDS: methocarbamoL 750 MG TAB PO PRN (16:23)
[2024-11-19 17:08] LABS: Glucose,Whole Blood 129 mg/dL (70-110)
[2024-11-19 18:44] LABS: Glucose,Whole Blood 139 mg/dL (70-110)
[2024-11-19 20:18] LABS: Glucose,Whole Blood 114 mg/dL (70-110)
[2024-11-19] MEDS: SENNOSIDES-DOCUSATE SODIUM 1 EACH TAB PO SCH (20:29)
[2024-11-19 21:02] LABS: Glucose,Whole Blood 98 mg/dL (70-110)
[2024-11-19 22:23] LABS: Glucose,Whole Blood 137 mg/dL (70-110)
[2024-11-19 23:10] LABS: Glucose,Whole Blood 133 mg/dL (70-110)
[2024-11-20 00:27] LABS: Glucose,Whole Blood 128 mg/dL (70-110)
[2024-11-20 01:02] LABS: Glucose,Whole Blood 123 mg/dL (70-110)
[2024-11-20 02:12] LABS: Glucose,Whole Blood 124 mg/dL (70-110)
[2024-11-20 04:07] LABS: Glucose,Whole Blood 128 mg/dL (70-110)
[2024-11-20 04:59] LABS: Glucose,Whole Blood 95 mg/dL (70-110)
[2024-11-20 04:59] LABS: Glucose,Whole Blood 146 mg/dL (70-110)
[2024-11-20 05:24] LABS: Basophils # (A) 0.04 10*3/uL (0.00-0.10); Basophils % (A) 0.2 %; Eosinophils # (A) 0.05 10*3/uL (0.04-0.35); Eosinophils % (A) 0.3 %; HCT 36.6 % (39.6-50.0); HGB 12.4 g/dL (13.0-17.0); Lymphocytes # (A) 1.64 10*3/uL (0.90-5.00); Lymphocytes % (A) 9.4 %; MCH 30.8 pg (27.0-32.0); MCHC 33.9 g/dL (32.0-37.0); Mean Platelet Volume 12.5 fL (9.5-12.2); Monocytes # (A) 1.93 10*3/uL (0.20-1.00); Monocytes % (A) 11.1 %; Neutrophils # (A) 13.69 10*3/uL (1.80-7.70); Neutrophils % (A) 78.4 %; Platelet Count 198 10*3/uL (140-440); RBC 4.02 10*6/uL (4.40-5.60); RDW 13.1 % (11.5-14.5); WBC 17.46 10*3/uL (4.50-10.00)
[2024-11-20 05:32] LABS: Ionized Calcium 4.8 mg/dL (4.5-5.3)
[2024-11-20 05:41] LABS: ALT 31 U/L (4-49); AST 45 U/L (17-59); African American GFR (CKD) >90 (>60 ml/min/1.73 sqM); Albumin 3.6 g/dL (3.5-5.0); Alkaline Phosphatase 64 U/L (38-126); Anion Gap 5 mmol/L; Blood Urea Nitrogen 21 mg/dL (9-20); Calcium 8.8 mg/dL (8.4-10.2); Carbon Dioxide 25 mmol/L (22-30); Chloride 102 mmol/L (98-107); Glucose 121 mg/dL (74-99); Non-African American GFR(CKD) >90 (>60 ml/min/1.73 sqM); Sodium 132 mmol/L (137-145); Total Bilirubin 1.8 mg/dL (0.2-1.3); Total Protein 5.8 g/dL (6.3-8.2)
[2024-11-20 06:47] LABS: Glucose,Whole Blood 126 mg/dL (70-110)
--- NOTE | 2024-11-20 06:47 | XR ---
EXAMINATION TYPE: XR chest 1V portable DATE OF EXAM: 11/20/2024 COMPARISON: 11/19/2024 CLINICAL INDICATION: Male, 49 years old with history of Post Operative Cardiac Surgery; TECHNIQUE: Single frontal view of the chest is obtained. FINDINGS: There is a central venous catheter in the right jugular vein [place] catheter has been removed in t he interval. There is no change in the bilateral chest tubes are stable to. There is essentially no interval change in the mild left lower lobe atelectasis. There is no pneumoth orax or significant pleural effusion. The heart and pulmonary vasculature are normal. IMPRESSION: 1. Interval removal of the [place] catheter. No change in the bilateral chest tubes and mediastinal tube 2. No change in the mild left lower lobe atelectasis. 3. No pneumothorax or significant pleural effusion [facility], , 11/20/2024 6:45 AM
[2024-11-20] MEDS: PANTOPRAZOLE 40 MG TABLET PO SCH (07:04)
[2024-11-20] MEDS: METOPROLOL TARTRATE 25 MG TAB PO SCH (08:09)
[2024-11-20 08:28] LABS: Glucose,Whole Blood 171 mg/dL (70-110)
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
--- NOTE | 2024-11-20 10:53 | P.PN ---
Subjective Progress Note Date: 11/20/24 49 year old M with PMH of CAD, HTN, HLD, chronic neck pain with h/o spinal cord surgery presents to [facility] for elective surgery. He underwent off-pump CABG x [address] Gonzales[address] [facility] consulted for medical management of the patient. 11/18 Patient was seen and examined. Intubated. Vent settings include rate 18, tidal volume 500, FiO2 40%, PEEP 10. Sedation includes Propofol at 40 mcg/kg/min. IVF includes NS at 50 cc/hr. Insulin drip at 2 units/hour. Nitroglycerin drip at 5 mcg/min. Clevidipine drip at 8 mg/hr. CBC, Coag panel, CMP significant for WBC 11.8, RBC 3.48, Hg 11, Hct 31.1, INR 1.2, Cl 108, glu 107, Ca 8.2, total protein 5.6. Ionized Ca 4.4. ABG pH 7.34, pCO2 45, pO2 114 on FiO2 60. CXR shows post surgical changes with bibasilar atelectasis. 11/19 Patient was seen and examined. Extubated on 11/18. Currently 94% on RA. IVF includes NS at 50 cc/hr. Insulin drip at 4 units/hr. Clevidipine and Nitroglycerine drip discontinued and patient re-started on Amlodipine. CBC, CMP significant for WBC 19.64, RBC 4.19, Hct 37.5, Na 134, glu 124, total protein 6.2. Mag 2. CXR shows post surgical changes with no acute abnormality. 11/20 Patient was seen and examined. Doing well with no complaints. Chest + mediastinal tubes discontinued today along with Trimble catheter. Insulin drip switched to ISS today. CBC, CMP significant for WBC 17.46, RBC 4.02, Hg 12.4, Hct 36.6, Na 132, BUN 21, glu 121, T. Bili 1.8, total protein 5.8. CXR shows right middle lobe atelectasis. General: No acute distress Derm: warm, dry Head: atraumatic, normocephalic, symmetric, R JI Eyes: EOMI, no lid lag, anicteric sclera Mouth: no lip lesion, mucus membranes moist Cardiovascular: S1S2 reg, no murmur, heart hugger in place Lungs: Clear to auscultation bilaterally. Ext: no gross muscle atrophy, no edema, no contractures Neuro: No focal neurologic deficits Psych: Alert and oriented Based on my assessment of this patient, this patient meets a high complexity level of care. SIRS: Tmax 100F. No signs of active infection. Leukocytosis possibly reactive. Monitor fever profile. Acute blood loss anemia: Expected result of surgery. Daily CBC. Transfuse if Hg < 7. CAD status post off-pump CABG x [address] Gonzales on 11/18: ASA 325 mg PO QD. Lipitor 40 mg PO QD. Plavix 75 mg PO QD. Metoprolol 75 mg PO BID. Cardiology and CT surgery on board. Dental abscess: Augmentin 875-125 mg PO BID. Pre-DM: A1c 6.4. Insulin drip switched to ISS with Accuchecks ACHS. Hypoglycemic precautions. Hypertension: Metoprolol as above. Amlodipine 5 mg PO QD. Hydralazine 10 mg IV Q1H PRN. Monitor vitals and adjust medications if necessary. Dyslipidemia: Lipitor as above. Chronic neck pain: Tramadol 50 mg PO Q6H, Robaxin 750 mg PO Q6H PRN. Toradol 15 mg IV Q6H PRN. CODE STATUS: FULL CODE DVT Prophylaxis: Heparin SQ GI Prophylaxis: Protonix PO Designated medical POA if patient is not able to make medical decisions for themselves: I have reviewed the following real estate consultant notes: CT surgery, Cardiology, Pulm note. I have reviewed the results of the following tests: CBC, CMP. I have ordered the following tests: I have discussed the care of this patient with the following independent histor lee: HARSH. I have independently interpreted the following test below: CXR I have discussed the management of this patient with the following physician: Objective - Vital Signs Vital signs: Vital Signs Temp 98.9 F 11/20/24 04:00 Pulse 95 11/20/24 09:03 Resp 15 11/20/24 07:00 BP 103/66 11/20/24 05:00 Pulse Ox 95 11/20/24 07:00 FiO2 40 11/18/24 16:39 Intake & Output 11/19/24 11/20/24 11/20/24 18:59 06:59 18:59 Intake Total 907.150 507.427 201.997 Output Total 930 1120 320 Balance -22.850 -612.573 -118.003 Weight 112.7 kg 114.6 kg Intake: IV 75 78 12 .9NS Pressure Bag 75 78 12 Intake, IV Titration 352.150 29.427 69.997 Amount Insulin Regular 100 unit 47.150 9.427 29.997 In Sodium Chloride 0.9% 100 ml @ Per Protocol IV .Q0M MAH[facility]Z Rx#:[id number] Nitroglycerin-D5w Pmx 50 5 mg In Dextrose/Water 1 250ml.bag @ 5 MCG/MIN 1.5 mls/hr IV .Q24H MAHNAZ Rx#: [id number] Sodium Chloride 0.9% 1, 250 20 40 000 ml @ 20 mls/hr IV . Q24H MAHNAZ Rx#:[id number] ceFAZolin 2 gm In 50 Dextrose 5% in Water 50 ml @ 100 mls/hr IVPB Q8HR MAHNAZ Rx#:[id number] Oral 480 400 120 Output: Chest Tube Drainage 470 [address] 220 90 50 Mediastial Chest Tube 180 [address] 70 120 30 Drainage 10 Left forearm 10 Urine 450 770 220 Other: Voiding Method Indwelling Catheter Indwelling Catheter Indwelling Catheter ABP, PAP, CO, CI - Last Documented Arterial Blood Pressure 102/72 Pulmonary Artery Pressure 25/10 Cardiac Output 7.6 Cardiac Index 3.2 - Labs CBC & Chem 7: 11/20/24 05:00 11/20/24 05:00 Labs: Abnormal Lab Results - Last 24 Hours (Table) 11/19/24 11/19/24 11/19/24 Range/Units 11:03 12:28 14:08 WBC (4.50-10.00) 10*3/uL RBC (4.40-5.60) 10*6/uL Hgb (13.0-17.0) g/dL Hct (39.6-50.0) % MPV (9.5-12.2) fL Immature Gran # (0.00-0.04) 10*3/uL Neutrophils # (1.80-7.70) 10*3/uL Monocytes # (0.20-1.00) 10*3/uL Sodium (137-145) mmol/L BUN (9-20) mg/dL Glucose (74-99) mg/dL POC Glucose (mg/dL) 122 H 137 H 132 H (70-110) mg/dL Total Bilirubin (0.2-1.3) mg/dL Total Protein (6.3-8.2) g/dL 11/19/24 11/19/24 11/19/24 Range/Units 15:40 17:05 18:42 WBC (4.50-10.00) 10*3/uL RBC (4.40-5.60) 10*6/uL Hgb (13.0-17.0) g/dL Hct (39.6-50.0) % MPV (9.5-12.2) fL Immature Gran # (0.00-0.04) 10*3/uL Neutrophils # (1.80-7.70) 10*3/uL Monocytes # (0.20-1.00) 10*3/uL Sodium (137-145) mmol/L BUN (9-20) mg/dL Glucose (74-99) mg/dL POC Glucose (mg/dL) 132 H 129 H 139 H (70-110) mg/dL Total Bilirubin (0.2-1.3) mg/dL Total Protein (6.3-8.2) g/dL 11/19/24 11/19/24 11/19/24 Range/Units 20:15 22:19 23:08 WBC (4.50-10.00) 10*3/uL RBC (4.40-5.60) 10*6/uL Hgb (13.0-17.0) g/dL Hct (39.6-50.0) % MPV (9.5-12.2) fL Immature Gran # (0.00-0.04) 10*3/uL Neutrophils # (1.80-7.70) 10*3/uL Monocytes # (0.20-1.00) 10*3/uL Sodium (137-145) mmol/L BUN (9-20) mg/dL Glucose (74-99) mg/dL POC Glucose (mg/dL) 114 H 137 H 133 H (70-110) mg/dL Total Bilirubin (0.2-1.3) mg/dL Total Protein (6.3-8.2) g/dL 11/20/24 11/20/24 11/20/24 Range/Units 00:26 01:00 02:10 WBC (4.50-10.00) 10*3/uL RBC (4.40-5.60) 10*6/uL Hgb (13.0-17.0) g/dL Hct (39.6-50.0) % MPV (9.5-12.2) fL Immature Gran # (0.00-0.04) 10*3/uL Neutrophils # (1.80-7.70) 10*3/uL Monocytes # (0.20-1.00) 10*3/uL Sodium (137-145) mmol/L BUN (9-20) mg/dL Glucose (74-99) mg/dL POC Glucose (mg/dL) 128 H 123 H 124 H (70-110) mg/dL Total Bilirubin (0.2-1.3) mg/dL Total Protein (6.3-8.2) g/dL 11/20/24 11/20/24 11/20/24 Range/Units 04:05 04:57 05:00 WBC 17.46 H (4.50-10.00) 10*3/uL RBC 4.02 L (4.40-5.60) 10*6/uL Hgb 12.4 L (13.0-17.0) g/dL Hct 36.6 L (39.6-50.0) % MPV 12.5 H (9.5-12.2) fL Immature Gran # 0.11 H (0.00-0.04) 10*3/uL Neutrophils # 13.69 H (1.80-7.70) 10*3/uL Monocytes # 1.93 H (0.20-1.00) 10*3/uL Sodium (137-145) mmol/L BUN (9-20) mg/dL Glucose (74-99) mg/dL POC Glucose (mg/dL) 128 H 146 H (70-110) mg/dL Total Bilirubin (0.2-1.3) mg/dL Total Protein (6.3-8.2) g/dL 11/20/24 11/20/24 11/20/24 Range/Units 05:00 06:46 08:26 WBC (4.50-10.00) 10*3/uL RBC (4.40-5.60) 10*6/uL Hgb (13.0-17.0) g/dL Hct (39.6-50.0) % MPV (9.5-12.2) fL Immature Gran # (0.00-0.04) 10*3/uL Neutrophils # (1.80-7.70) 10*3/uL Monocytes # (0.20-1.00) 10*3/uL Sodium 132 L (137-145) mmol/L BUN 21 H (9-20) mg/dL Glucose 121 H (74-99) mg/dL POC Glucose (mg/dL) 126 H 171 H (70-110) mg/dL Total Bilirubin 1.8 H (0.2-1.3) mg/dL Total Protein 5.8 L (6.3-8.2) g/dL
[2024-11-20 11:51] LABS: Glucose,Whole Blood 121 mg/dL (70-110)
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
[2024-11-20] MEDS: INSULIN LISPRO (HumaLOG) 100 UNIT/ML 10 mL VL SQ SCH (12:45)
[2024-11-20] MEDS: ALBUMIN HUMAN 5% 500 ML IVPB ONE (12:49)
[2024-11-20] MEDS: ALBUMIN HUMAN 25% 50 ML IV ONE (12:49)
[2024-11-20] MEDS: ceFAZolin 1,000 MG in SODIUM CHLORIDE 0.9% IRRIGATIO 1,000 ML IRRIGATION ONE (12:50)
[2024-11-20] MEDS: ceFAZolin 2 GM in DEXTROSE 5% IN WATER 50 ML IVPB ONE ×2 (12:50)
[2024-11-20] MEDS: CALCIUM CHLORIDE 100 MG/ML 10 ML SYRINGE IV ONE (12:50)
[2024-11-20] MEDS: HEPARIN SODIUM 1,000 UN/ML (10ML VL) IV ONE (12:50)
[2024-11-20] MEDS: CLEVIDIPINE BUTYRATE 25 MG in EMPTY BAG 1 BAG IV ONE (12:50)
[2024-11-20] MEDS: ASPIRIN 325 MG TAB PO ONE (12:50)
[2024-11-20] MEDS: MAGNESIUM SULFATE 16.24 MEQ in EMPTY SYRINGE 1 SYR IV ONE (12:51)
[2024-11-20] MEDS: NITROGLYCERIN-D5W PMX 50 MG in DEXTROSE/WATER 1 250ML.BAG IV ONE (12:51)
[2024-11-20] MEDS: NOREPINEPHRINE 4 MG in SODIUM CHLORIDE 0.9% 250 ML IV ONE (12:51)
[2024-11-20] MEDS: NITROGLYCERIN-D5W PMX 25 MG/250 ML BTL IV ONE (12:51)
[2024-11-20] MEDS: LACTATED RINGERS 1,000 ML IV ONE (12:51)
[2024-11-20] MEDS: HEPARIN SODIUM,PORCINE (1 ML) 5,000 UNIT in SODIUM CHLORIDE 0.9% 500 ML 500 ML IV ONE (12:51)
[2024-11-20] MEDS: INSULIN REGULAR 100 UNIT in SODIUM CHLORIDE 0.9% 100 ML IV ONE (12:52)
[2024-11-20] MEDS: PHENYLEPHRINE 10 MG/ML VIAL IV ONE (12:52)
[2024-11-20] MEDS: PAPAVERINE 360 MG in SODIUM CHLORIDE 0.9% 90 ML IV ONE (12:52)
[2024-11-20] MEDS: NITROGLYCERIN SL TABS 0.4 MG TAB SUBLINGUAL ONE (12:52)
[2024-11-20] MEDS: MANNITOL 25% 12.5 GM/50 ML VIAL IV ONE (12:52)
[2024-11-20] MEDS: PHENYLEPHRINE 40 MG in SODIUM CHLORIDE 0.9% 250 ML IV ONE (12:52)
[2024-11-20] MEDS: TRANEXAMIC ACID 2,000 MG in SODIUM CHLORIDE 0.9% 80 ML IV ONE ×2 (12:53→12:54)
[2024-11-20] MEDS: propofoL 1,000 MG/100 ML VIAL IV ONE (12:53)
[2024-11-20] MEDS: PROTAMINE SULFATE 250 MG in EMPTY BAG 1 BAG IV ONE (12:53)
[2024-11-20] MEDS: PROTAMINE SULFATE 10 MG/ML 25 ML VIAL IV ONE (12:53)
[2024-11-20] MEDS: SODIUM BICARB 8.4% 50 ML SYR (1 MEQ/ML) IV ONE (12:54)
[2024-11-20] MEDS: SODIUM CHLORIDE 0.9% 1,000 ML IV ONE (12:54)
[2024-11-20] MEDS: HYDROcodone/APAP 5-325MG 1 EACH TAB PO PRN (13:44)
[2024-11-20 16:38] LABS: Glucose,Whole Blood 132 mg/dL (70-110)
[2024-11-20 19:56] LABS: Glucose,Whole Blood 146 mg/dL (70-110)
[2024-11-20] MEDS: ZOLPIDEM 5 MG TAB PO PRN (20:21)
[2024-11-21 05:48] LABS: Glucose,Whole Blood 136 mg/dL (70-110)
[2024-11-21 06:42] LABS: ALT 31 U/L (4-49); AST 44 U/L (17-59); African American GFR (CKD) >90 (>60 ml/min/1.73 sqM); Albumin 3.3 g/dL (3.5-5.0); Alkaline Phosphatase 62 U/L (38-126); Anion Gap 6 mmol/L; Blood Urea Nitrogen 20 mg/dL (9-20); Calcium 8.7 mg/dL (8.4-10.2); Carbon Dioxide 28 mmol/L (22-30); Chloride 101 mmol/L (98-107); Glucose 120 mg/dL (74-99); Non-African American GFR(CKD) >90 (>60 ml/min/1.73 sqM); Potassium 3.6 mmol/L (3.5-5.1); Sodium 135 mmol/L (137-145); Total Bilirubin 1.2 mg/dL (0.2-1.3); Total Protein 5.6 g/dL (6.3-8.2)
[2024-11-21 07:20] LABS: Basophils # (A) 0.05 10*3/uL (0.00-0.10); Basophils % (A) 0.4 %; Eosinophils # (A) 0.24 10*3/uL (0.04-0.35); Eosinophils % (A) 2.1 %; HCT 33.1 % (39.6-50.0); HGB 11.3 g/dL (13.0-17.0); Lymphocytes # (A) 1.59 10*3/uL (0.90-5.00); Lymphocytes % (A) 13.6 %; MCH 31.5 pg (27.0-32.0); MCHC 34.1 g/dL (32.0-37.0); MCV 92.2 fL (80.0-97.0); Mean Platelet Volume 12.5 fL (9.5-12.2); Neutrophils # (A) 8.34 10*3/uL (1.80-7.70); Neutrophils % (A) 71.5 %; Platelet Count 187 10*3/uL (140-440); RBC 3.59 10*6/uL (4.40-5.60); RDW 12.9 % (11.5-14.5); WBC 11.67 10*3/uL (4.50-10.00)
[2024-11-21] MEDS: METOPROLOL TARTRATE 50 MG TAB PO SCH (08:23)
[2024-11-21] MEDS: MAGNESIUM HYDROXIDE 2,400 MG/30 ML CUP PO PRN (08:28)
--- NOTE | 2024-11-21 09:40 | XR ---
EXAMINATION TYPE: XR chest 2V DATE OF EXAM: 11/21/2024 6:44 AM COMPARISON: Chest radiographs from 11/20/2024 CLINICAL INDICATION: Male, 49 years old with history of post op CABG; [facility] TECHNIQUE: XR chest 2V Frontal and lateral views of the chest. FINDINGS: Lungs/Pleura: There is no evidence of pleural effusion, focal consolidation, or pneumothorax. Pulmonary vascularity: Unremarkable. Heart/mediastinum: Cardiomediastinal silhouette is unremarkable. Left atrial appendage occlusion jaycee ce is present. Musculoskeletal: No acute osseous pathology. Midline sternotomy wires are noted. Other findings: None IMPRESSION: Postsurgical changes. No evidence for acute process. [facility], , 11/21/2024 9:38 AM
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
[2024-11-21 11:59] LABS: Glucose,Whole Blood 131 mg/dL (70-110)
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
[2024-11-21 16:06] LABS: Glucose,Whole Blood 126 mg/dL (70-110)
[2024-11-21 20:26] LABS: Glucose,Whole Blood 162 mg/dL (70-110)
[2024-11-21] MEDS: MELATONIN 3 MG TABLET PO SCH (20:44)
[2024-11-21] MEDS: DEXTROSE 5% IN WATER 100 ML with AMIODARONE 150 MG IV PRN (23:33)
[2024-11-22] MEDS: AMIODARONE 360 MG in DEXTROSE 5% IN WATER 200 ML IV PRN (01:04)
[2024-11-22] MEDS: FUROSEMIDE 10 MG/ML 2 ML VIAL IV ONE (01:08)
[2024-11-22 05:55] LABS: Glucose,Whole Blood 125 mg/dL (70-110)
[2024-11-22] MEDS: AMIODARONE 450 MG in DEXTROSE 5% IN WATER 250 ML IV PRN (06:56)
[2024-11-22 07:44] LABS: HCT 31.1 % (39.6-50.0); HGB 10.5 g/dL (13.0-17.0); MCHC 33.8 g/dL (32.0-37.0); MCV 91.7 fL (80.0-97.0); Mean Platelet Volume 11.8 fL (9.5-12.2); Platelet Count 240 10*3/uL (140-440); RBC 3.39 10*6/uL (4.40-5.60); WBC 9.01 10*3/uL (4.50-10.00)
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
[2024-11-22 08:06] LABS: African American GFR (CKD) >90 (>60 ml/min/1.73 sqM); Anion Gap 12 mmol/L; Blood Urea Nitrogen 20 mg/dL (9-20); Calcium 8.3 mg/dL (8.4-10.2); Carbon Dioxide 27 mmol/L (22-30); Chloride 101 mmol/L (98-107); Glucose 144 mg/dL (74-99); Non-African American GFR(CKD) >90 (>60 ml/min/1.73 sqM); Potassium 3.6 mmol/L (3.5-5.1); Sodium 140 mmol/L (137-145)
--- NOTE | 2024-11-22 08:13 | XR ---
EXAMINATION TYPE: XR chest 2V DATE OF EXAM: 11/22/2024 6:56 AM COMPARISON: Chest radiographs from 11/21/2024 CLINICAL INDICATION: Male, 49 years old with history of Postop CABG; [facility] TECHNIQUE: XR chest 2V Frontal and lateral views of the chest. FINDINGS: Lungs/Pleura: There is no evidence of pleural effusion, focal consolidation, or pneumothorax. Pulmonary vascularity: Unremarkable. Heart/mediastinum: Cardiomediastinal silhouette is unremarkable. Left atrial appendage occlusion jaycee ce is present. Musculoskeletal: No acute osseous pathology. Midline sternotomy wires are noted. Other findings: None IMPRESSION: Stable exam, no definitive acute process [facility], , 11/22/2024 8:11 AM
[2024-11-22] MEDS: AMIODARONE 200 MG TAB PO SCH (08:38)
[2024-11-22] MEDS ORDERED: SENNOSIDES-DOCUSATE SODIUM 1 EACH TAB PO PRN (09:27)
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
[2024-11-22] MEDS: POTASSIUM CHLORIDE ER 20 MEQ TAB.ER PO STA (11:33)
[2024-11-22 11:58] LABS: Glucose,Whole Blood 100 mg/dL (70-110)
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
[2024-11-22 16:51] LABS: Glucose,Whole Blood 117 mg/dL (70-110)
[2024-11-22 19:55] VITALS: RESP 16
[2024-11-22 20:08] LABS: Glucose,Whole Blood 236 mg/dL (70-110)
[2024-11-22 23:16] VITALS: TEMP 98.3
[2024-11-23 06:25] LABS: Glucose,Whole Blood 139 mg/dL (70-110)
[2024-11-23 07:04] LABS: HCT 30.4 % (39.6-50.0); HGB 10.2 g/dL (13.0-17.0); MCHC 33.6 g/dL (32.0-37.0); MCV 92.4 fL (80.0-97.0); Mean Platelet Volume 11.4 fL (9.5-12.2); Platelet Count 279 10*3/uL (140-440); RBC 3.29 10*6/uL (4.40-5.60); WBC 9.82 10*3/uL (4.50-10.00)
[2024-11-23 07:27] LABS: African American GFR (CKD) >90 (>60 ml/min/1.73 sqM); Anion Gap 9 mmol/L; Blood Urea Nitrogen 24 mg/dL (9-20); Calcium 8.9 mg/dL (8.4-10.2); Carbon Dioxide 28 mmol/L (22-30); Chloride 101 mmol/L (98-107); Glucose 111 mg/dL (74-99); Magnesium 2.3 mg/dL (1.6-2.3); Non-African American GFR(CKD) >90 (>60 ml/min/1.73 sqM); Potassium 3.7 mmol/L (3.5-5.1); Sodium 138 mmol/L (137-145)
--- NOTE | 2024-11-23 08:11 | XR ---
EXAMINATION TYPE: XR chest 2V DATE OF EXAM: 11/23/2024 6:21 AM COMPARISON: Chest radiographs from 11/22/2024 TECHNIQUE: XR chest 2V Frontal and lateral views of the chest. CLINICAL INDICATION:Male, 49 years old with history of Post open heart surgery; FINDINGS: Lungs/Pleura: There is no evidence of pleural effusion or pneumothorax. Left basilar linear scarring and/or atelectasis. Pulmonary vascularity: Unremarkable. Heart/mediastinum: Cardiomediastinal silhouette is enlarged and stable. Left atrial appendage occlusi on devices present. Musculoskeletal: Multiple level degenerative disc disease changes seen throughout the spine. Midline sternotomy wires are noted and stable. IMPRESSION: Stable post cardiac surgery changes. No acute process. [facility], , 11/23/2024 8:08 AM
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
[2024-11-23] MEDS: POTASSIUM CHLORIDE ER 20 MEQ TAB.ER PO SCH (09:38)
--- NOTE | 2024-11-23 10:31 | P.PN ---
Subjective Progress Note Date: 11/23/24 Hospital Course: 49 year old M with PMH of CAD, HTN, HLD, chronic neck pain with h/o spinal cord surgery presents to [facility] for elective surgery. He underwent off-pump CABG x [address] Gonzales[address] [facility] consulted for medical management of the patient. 421: Seen and examined, sitting in recliner, patient's mother present during exam. He states that he only has some left upper chest discomfort, otherwise no complaints, ambulates with no difficulties. Possible discharge tomorrow. WBC improving to 11.6, hemoglobin stable 11.3, sodium stable 135, normal potassium, bicarb, kidney function, blood glucose is controlled. Blood pressure 105/70, afebrile 11/22: A-fib overnighton amiodarone drip, started on oral amiodarone 100 mg twice daily. Afebrile blood pressure 109/73. WBC normal, hemoglobin stable, BMP unremarkable, blood glucose controlled. No complaints today. 11/23: Complains of mild pain at the site of chest tube insertion, otherwise feels well, now in sinus rhythm, says that he is supposed to be discharged later today. No anticoagulation needed per cardiovascular surgery as he was in A-fib for less than 24 hours, will continue amiodarone 400 mg p.o. twice daily and taper weekly per protocol. Pertinent Imaging: Chest x-ray no acute abnormalities Pertinent positives and negatives as discussed above, a complete review of systems was performed and all other systems are negative. Vitals Signs Reviewed. General: [nontoxic], [no distress], [appears at stated age] Derm: [warm], [dry] Head: [atraumatic], [normocephalic], [symmetric] Eyes: [EOMI], [no lid lag], [anicteric sclera] Mouth: [no lip lesion], [mucus membranes moist] Cardiovascular: [S1S2 irreg], [no murmur], postop dressing clean and dry Lungs: [CTA bilateral], [no rhonchi, no rales] , [no accessory muscle use] Abdominal: [soft], [ nontender to palpation], [no guarding], [no appreciable organomegaly] Ext: [no gross muscle atrophy], [no edema], [no contractures] Neuro: [ CN II-XI grossly intact], [no focal neuro deficits] Psych: [Alert], [oriented], [appropriate affect] Assessment and Plan: New onset A-fib with RVR -started on amiodarone 400 mg twice daily, taper weekly per protocol -Now in sinus rhythm, no anticoagulation needed this patient was not A-fib for less than 24 hours SIRS with fever Tmax 100F and leukocytosis, afebrile since 11/19/2024 8 PM, li maci reactive postop, leukocytosis resolved Acute blood loss anemia - Expected postop - Daily CBC, transfuse for hemoglobin less than 7 - Hemoglobin 10.2, WBC 9.8 CAD status post off-pump CABG x [address] Gonzales on 11/18: ASA 325 mg PO QD. Lipitor 40 mg PO QD. Plavix 75 mg PO QD. Metoprolol increased to 100 twice daily mg PO BID. Cardiology and CT surgery on board. Dental abscess Augmentin 875-125 mg PO BID. Pre-DM A1c 6.4. Insulin drip switched to ISS with Accuchecks ACHS Hypoglycemic precautions. Hypertension Metoprolol as above. Amlodipine 5 mg PO QD. Hydralazine 10 mg IV Q1H PRN. Monitor vitals and adjust medications if necessary. Dyslipidemia Lipitor as above. Chronic neck pain: Tramadol 50 mg PO Q6H, Robaxin 750 mg PO Q6H PRN. Toradol 15 mg IV Q6H PRN. Insomnia: Melatonin 6 mg nightly ordered, Ambien ordered DVT ppx: Heparin subcu Code status: Full codeI have reviewed the following intelligence consultant notes: CT surgery, Cardiology, Pulm note. I have reviewed the results of the following tests: CBC, CMP. I have ordered the following tests: I have discussed the care of this patient with the following independent historian: Patient, his mother I have independently interpreted the following test below: I have discussed the management of this patient with the following physician: Objective - Vital Signs Vital signs: Vital Signs Temp 98.3 F 11/23/24 07:20 Pulse 80 11/23/24 07:20 Resp 16 11/23/24 07:20 BP 121/75 11/23/24 07:20 Pulse Ox 95 11/23/24 07:20 FiO2 40 11/18/24 16:39 Intake & Output 11/22/24 11/23/2425 18:59 06:59 18:59 Intake Total 270 Output Total 1150 Balance -880 Weight 112.2 kg Intake: IV 20 Invasive Line 4 20 Intake, IV Titration 250 Amount Amiodarone 450 mg In 250 Dextrose 5% in Water 250 ml @ 0.5 MG/MIN 16.667 mls/hr IV .Q15H PRN Rx#: [id number] Output: Urine 1150 Other: Voiding Method Toilet Urinal Urinal Urinal # Voids 5 ABP, PAP, CO, CI - Last Documented Arterial Blood Pressure 117/68 Pulmonary Artery Pressure 25/10 Cardiac Output 7.6 Cardiac Index 3.2 - Labs CBC & Chem 7: 11/23/24 05:32 11/23/24 05:32 Labs: Abnormal Lab Results - Last 24 Hours (Table) 11/22/24 11/22/24 11/23/24 Range/Units 16:50 20:07 05:32 RBC 3.29 L (4.40-5.60) 10*6/uL Hgb 10.2 L (13.0-17.0) g/dL Hct 30.4 L (39.6-50.0) % BUN (9-20) mg/dL Glucose (74-99) mg/dL POC Glucose (mg/dL) 117 H 236 H (70-110) mg/dL 11/23/24 11/23/24 Range/Units 05:32 06:23 RBC (4.40-5.60) 10*6/uL Hgb (13.0-17.0) g/dL Hct (39.6-50.0) % BUN 24 H (9-20) mg/dL Glucose 111 H (74-99) mg/dL POC Glucose (mg/dL) 139 H (70-110) mg/dL
[2024-11-23 11:23] VITALS: BP 103/67; PULSE 70
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
[2024-11-23 11:38] LABS: Glucose,Whole Blood 116 mg/dL (70-110)
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
== END 2024-11-23 12:48 | disposition home health service (06) | DRG 236 ==
LOC: 2ORMAIN 05:33 → 2SICU 11:29 → 3SCARD 11-20 13:41
PROVIDERS: ADMIT Thoracic Surgery (Cardiothoracic Vascular Surgery); ATTEND Thoracic Surgery (Cardiothoracic Vascular Surgery)
PROC: 02HV33Z Insertion of Infusion Device into Superior Vena Cava, Percutaneous Approach (ICD-10-PCS; principal; 2024-11-18 08:00)
PROC: 03BC3ZZ Excision of Left Radial Artery, Percutaneous Approach (ICD-10-PCS; principal; 2024-11-18 08:00)
PROC: 02100Z8 Bypass Coronary Artery, One Artery from Right Internal Mammary, Open Approach (ICD-10-PCS; principal; 2024-11-18 08:00)
PROC: 02100AW Bypass Coronary Artery, One Artery from Aorta with Autologous Arterial Tissue, Open Approach (ICD-10-PCS; principal; 2024-11-18 08:00)
PROC: 02L70CK Occlusion of Left Atrial Appendage with Extraluminal Device, Open Approach (ICD-10-PCS; principal; 2024-11-18 08:00)
PROC: 02100Z9 Bypass Coronary Artery, One Artery from Left Internal Mammary, Open Approach (ICD-10-PCS; principal; 2024-11-18 08:00)
DX: I25.119 Atherosclerotic heart disease of native coronary artery with unspecified angina pectoris (principal); D62 Acute posthemorrhagic anemia; I10 Essential (primary) hypertension; R65.10 Systemic inflammatory response syndrome (SIRS) of non-infectious origin without acute organ dysfunction; J98.11 Atelectasis; I48.0 Paroxysmal atrial fibrillation; V89.2XXS Person injured in unspecified motor-vehicle accident, traffic, sequela; R25.1 Tremor, unspecified; J30.2 Other seasonal allergic rhinitis; D72.829 Elevated white blood cell count, unspecified; T14.90XS Injury, unspecified, sequela; E78.5 Hyperlipidemia, unspecified; G47.00 Insomnia, unspecified; G89.29 Other chronic pain; K04.7 Periapical abscess without sinus; K21.9 Gastro-esophageal reflux disease without esophagitis; R73.03 Prediabetes; V80.010S Animal-rider injured by fall from or being thrown from horse in noncollision accident, sequela; F17.200 Nicotine dependence, unspecified, uncomplicated; Z79.02 Long term (current) use of antithrombotics/antiplatelets; Z79.82 Long term (current) use of aspirin; Z79.899 Other long term (current) drug therapy; Z98.1 Arthrodesis status
CPT/HCPCS: 71045; 71046; 80048; 80053; 80061; 80074; 82330; 82805; 83735; 84443; 85025; 85027; 85610; 85730; 86850; 86900; 86901; 86920; 94002; 94640

== ENCOUNTER → 2024-11-28 | Outpatient (CLI) | payer MEDICAID ==
[2024-11-28 15:58] LABS: ALT 71 U/L (10-49); AST 43 U/L (14-35); Albumin 4.1 g/dL (3.8-4.9); Albumin/Globulin Ratio 1.37 Ratio (1.60-3.17); Alkaline Phosphatase 120 U/L (41-126); Blood Urea Nitrogen 21.6 mg/dL (9.0-27.0); Calcium 9.4 mg/dL (8.7-10.3); Carbon Dioxide 20.7 mmol/L (21.6-31.8); Chloride 104 mmol/L (96-109); Glucose 104 mg/dL (70-110); Potassium 4.9 mmol/L (3.5-5.5); Sodium 140 mmol/L (135-145); Total Bilirubin 0.7 mg/dL (0.3-1.2); Total Protein 7.1 g/dL (6.2-8.2)
[2024-11-28 16:17] LABS: Basophils % (A) 0.8 %; Eosinophils # (A) 0.64 X 10*3/uL (0.04-0.35); Eosinophils % (A) 5.3 %; HCT 43.7 % (39.6-50.0); HGB 13.5 g/dL (13.0-17.0); Lymphocytes # (A) 1.98 X 10*3/uL (0.90-5.00); Lymphocytes % (A) 16.2 %; MCHC 30.9 g/dL (32.0-37.0); MCV 97.1 FL (80.0-97.0); Mean Platelet Volume 11.1 FL (9.5-12.2); Monocytes # (A) 1.01 X 10*3/uL (0.20-1.00); Monocytes % (A) 8.3 %; NRBC Per 100 WBC 0 X 10*3/uL (0.00-0.01); Neutrophils # (A) 8.35 X 10*3/uL (1.80-7.70); Neutrophils % (A) 68.5 %; Platelet Count 443 X 10*3/uL (140-440); RBC Morphology Normal (Normal); RDW 12.8 % (11.5-14.5); WBC 12.19 X 10*3/uL (4.50-10.00)
== END | disposition home or self-care (01) ==
LOC: LABWHC1 10:55
PROVIDERS: ATTEND Nurse Practitioner Family
DX: Z95.1 Presence of aortocoronary bypass graft (principal)
CPT/HCPCS: 36415; 80053; 85025

== ENCOUNTER → 2024-11-29 | Outpatient (CLI) | payer MEDICAID ==
--- NOTE | 2024-11-29 16:24 | XR ---
EXAMINATION TYPE: XR chest 2V DATE OF EXAM: 11/29/2024 11:55 AM COMPARISON: 11/23/2024 CLINICAL INDICATION: Male, 49 years old with history of Z95.1 PRESENCE OF AORTOCORONARY BYPASS GRAFT, , TECHNIQUE: Frontal and lateral views FINDINGS: Median sternotomy wires and post-CABG clips. Strandy atelectasis or scarring at the left base. On the lateral view, unable to exclude trace pleural effusions. Visualized upper and mid lungs appear clear . IMPRESSION: Unable to exclude trace pleural effusions on the lateral view. Strandy atelectasis or scar at the lef t base. Previous post-CABG changes. [facility], Workstation: [id number], 11/29/2024 4:22 PM
== END | disposition home or self-care (01) ==
LOC: RADXRMAIN 11:35
PROVIDERS: ATTEND Internal Medicine Interventional Cardiology
DX: Z95.1 Presence of aortocoronary bypass graft (principal)
CPT/HCPCS: 71046

== ENCOUNTER → 2024-12-06 | Outpatient (CLI) | payer MEDICAID ==
--- NOTE | 2024-12-06 17:11 | CA ---
Exercise Stress Test Report Name: Antonino Love Exam Date: 12/06/2024 10:22 Exam Location: [facility] Stress Ht (in): 73 Wt (lb): 236 BSA: 2.31 Ordering Phys: Talha Gonzalez MD Referring Phys: HECTOR,, Technologist: JENS,, Age: 49 Gender: M : 1975 Procedure CPT: Indications: Z95.1 PRESENCE OF BYPASS GRAFT ICD-10 Codes: Patient History: HTN, HYPERCHOLESTEROLEMIA, FAMILY HX OF HEART DISEASE, PRIOR HEART CATH, CABG X 3 Medications: METOPROLOL, PROTONIX, TYLENOL, ATORVASTATIN, ASA Meds past 24 hrs: Pretest Chest Pain: STRESS TEST Modified Alex Protocol Exercise Duration (min:sec): 10:[address] Depressions (mm): Angina Score: To Score: Resting HR (bpm): 90 Peak HR (bpm): 120 Resting BP (mmHg): 135 / 82 Peak BP (mmHg): 182 / 66 MPHR: 171 Target HR: 145 % MPHR: 70 METS: 5.9 Total Dose: Peak Dose: Atropine: Double Product: 23474 BP Response: Stress Termination: MODIFIED ALEX PROTOCOL PER ORDERING DR REQUEST Stress Symptoms: ASYMPTOMATIC Stress Summary: ECG ANALYSIS Resting ECG: Stress ECG: CONCLUSIONS This is a low-level stress test baseline EKG revealed normal sinus rhythm with minor nonspecific inferior lateral ST abnormality. Patient walked for a total duration of 10 minutes as per the modified Alex protocol. Maximal heart rate was 120 bpm which is about 70% of predicted maximal. No symptoms. He developed some shortness of breath at peak exercise. This is an inconclusive stress test by EKG criteria but patient can be enrolled in cardiac rehab program Dr. Sergo Faye MD (Electronically Signed) Final Date: 06 Dec 2024 17:10
== END | disposition home or self-care (01) ==
LOC: RADNMMAIN 09:50
PROVIDERS: ATTEND Internal Medicine Interventional Cardiology
DX: I49.9 Cardiac arrhythmia, unspecified (principal); Z95.1 Presence of aortocoronary bypass graft
CPT/HCPCS: 93017

== ENCOUNTER → 2025-01-12 | Outpatient (CLI) | payer MEDICAID ==
[2025-01-12 19:33] LABS: ALT 55 U/L (10-49); AST 32 U/L (14-35); Albumin 5.1 g/dL (3.8-4.9); Albumin/Globulin Ratio 1.65 Ratio (1.60-3.17); Alkaline Phosphatase 129 U/L (41-126); BUN/Creat Ratio 20.58 Ratio (12.00-20.00); Blood Urea Nitrogen 24.7 mg/dL (9.0-27.0); Calcium 9.9 mg/dL (8.7-10.3); Carbon Dioxide 19.8 mmol/L (21.6-31.8); Chloride 104 mmol/L (96-109); Chol/HDL Ratio 3.71 Ratio; Globulin 3.1 g/dL (1.6-3.3); Glucose 108 mg/dL (70-110); LDL Cholesterol,Calculated 65.5 mg/dL (0.0-131.0); Potassium 4.6 mmol/L (3.5-5.5); Sodium 142 mmol/L (135-145); Total Bilirubin 0.7 mg/dL (0.3-1.2); Total Protein 8.2 g/dL (6.2-8.2)
== END | disposition home or self-care (01) ==
LOC: LABWHC1 13:56
PROVIDERS: ATTEND Internal Medicine Interventional Cardiology
DX: E78.2 Mixed hyperlipidemia (principal)
CPT/HCPCS: 36415; 80053; 80061